=== PATIENT | female | born 1950 | race Caucasian/White ===

== ENCOUNTER → 2017-07-10 09:06 | Outpatient (CLI) | payer OTHER, SELFPAY ==
[2017-07-10 10:39] LABS: Alanine Aminotransferase 31 IU/L (9-52); Albumin 4.4 g/dL (3.5-5.0); Albumin Globulin Ratio 1.6 (1.0-2.8); Alkaline Phosphatase 92 U/L (38-126); Aspartate Aminotransferase 31 IU/L (14-36); Bilirubin Total 0.6 mg/dL (0.2-1.3); Blood Urea Nitrogen 10 mg/dL (7-17); Calcium 8.9 mg/dL (8.4-10.2); Carbon Dioxide 28 mmol/L (22-32); Chloride 102 mmol/L (98-107); Estimated Glomerular Filt Rate > 60.0 mL/min (>60); Globulin 2.8 g/dL (1.7-4.1); Glucose 97 mg/dL (80-110); HEMOLYSIS < 15 (0-50); Potassium 4.8 mmol/L (3.4-5.1); Sodium 140 mmol/L (137-145); Total Protein 7.2 g/dL (6.3-8.2)
[2017-07-10 11:28] LABS: Creatinine Urine Random 48.6 mg/dL
[2017-07-10 11:32] LABS: Microalbumi Creatinin Ratio Ur 14.4 ug/mg CR (<30); Microalbumin Urine Random 0.7 mg/dL (0-1.6)
== END ==
PROVIDERS: PCP Physician Assistant; Visit Provider Physician Assistant
DX: I10 Essential (primary) hypertension (principal)
CPT/HCPCS: 36415; 80053; 82043; 82570

== ENCOUNTER → 2017-08-28 07:47 | Outpatient (CLI) | payer OTHER, SELFPAY ==
--- NOTE | 2017-08-28 07:48 | DI.MG.S_ITS ---
BILATERAL DIGITAL SCREENING MAMMOGRAM 3D/2D WITH CAD: 08/28/2017 CLINICAL: Routine screening. Family history of breast cancer. Comparison is made to exams dated: 05/19/2016 mammogram, 04/28/2015 mammogram, and 04/21/2014 mammogram - [facility]. The tissue of both breasts is heterogeneously dense. This may lower the sensitivity of mammography. Current study was also evaluated with a Computer Aided Detection (CAD) system. There are grouped heterogeneous pleomorphic punctate calcifications in the left breast at 1 o'clock middle depth. These are increased in number of calcifications. No other significant masses, calcifications, or other findings are seen in either breast. IMPRESSION: INCOMPLETE: NEEDS ADDITIONAL IMAGING EVALUATION The grouped heterogeneous pleomorphic punctate calcifications in the left breast are indeterminate. Mediolateral, spot magnification, and additional views are recommended. This exam was interpreted at Station ID: [id number]. NOTE: For mammograms, a report in lay terms will be sent to the patient. Approximately 15% of breast malignancies will not be visualized mammographically. In the management of a palpable breast mass, a negative mammogram must not discourage biopsy of a clinically suspicious lesion. Electronically Signed By: Joel benavidez/hiren:08/28/2017 16:42:54 letter sent: Additional Imaging Needed ACR BI-RADS Category 0: Incomplete 3340F
== END ==
PROVIDERS: PCP Physician Assistant; Visit Provider Physician Assistant
DX: Z12.31 Encounter for screening mammogram for malignant neoplasm of breast (principal); Z80.3 Family history of malignant neoplasm of breast
CPT/HCPCS: 77063; 77067

== ENCOUNTER → 2017-09-05 12:44 | Outpatient (CLI) | payer OTHER, SELFPAY ==
--- NOTE | 2017-09-05 12:46 | DI.MG.S_ITS ---
UNILATERAL LEFT DIGITAL DIAGNOSTIC MAMMOGRAM 3D/2D WITH ADDITIONAL VIEWS: 09/05/2017 CLINICAL: Additional evaluation requested from prior study. Comparison is made to exams dated: 08/28/2017 mammogram, 05/19/2016 mammogram, and 04/28/2015 mammogram - [facility]. The tissue of the left breast is heterogeneously dense. This may lower the sensitivity of mammography. There is a calcification in the left breast at 1 o'clock middle depth. No other significant masses or calcifications are seen in the breast. IMPRESSION: SUSPICIOUS OF MALIGNANCY The calcification in the left breast is suspicious of malignancy. A stereotactic biopsy is recommended. This exam was interpreted at Station ID: [id number]. NOTE: For mammograms, a report in lay terms will be sent to the patient. Approximately 15% of breast malignancies will not be visualized mammographically. In the management of a palpable breast mass, a negative mammogram must not discourage biopsy of a clinically suspicious lesion. Electronically Signed By: Reyes walker/hiren:09/05/2017 16:47:12 letter sent: Biopsy Required ACR BI-RADS Category 4: Suspicious abnormality 3344F
== END ==
PROVIDERS: PCP Physician Assistant; Visit Provider Physician Assistant
DX: R92.1 Mammographic calcification found on diagnostic imaging of breast (principal)
CPT/HCPCS: 77065; G0279

== ENCOUNTER 2017-12-30 19:43 | Emergency (ER) | payer OTHER, SELFPAY ==
[2017-12-30] VITALS (11 sets, daily range): BP systolic 142–183; BP diastolic 65–82; PULSE 70–86; RESP 11–18; TEMP 36.8; O2SAT 98–100; BMI 34.7
--- NOTE | 2017-12-30 20:01 | DI.RAD.S_ITS ---
PROCEDURE: XR WRIST RT MIN 3V INDICATIONS: fall with obvious deformity, distal radius? TECHNIQUE: 4 views of the wrist were acquired. COMPARISON: None. FINDINGS: Bones: Moderately displaced impacted comminuted distal radial fracture with articular surface extension to the radiocarpal joint. Mildly displaced ulnar styloid fracture. Scaphoid view: Negative Soft tissues: No suspicious soft tissue calcifications. IMPRESSION: Distal radial and ulnar fractures. Dictated by: Celio Kingston M.D. on 12/30/2017 at 20:14 Approved by: Celio Kingston M.D. on 12/30/2017 at 20:15
--- NOTE | 2017-12-30 20:01 | DI.CT.S_ITS ---
PROCEDURE: CT HEAD/BRAIN WO CON INDICATIONS: fall, head injury, on antiplatelets TECHNIQUE: Noncontrast 4.5 mm thick angled axial sections acquired from the foramen magnum to the vertex, with coronal and sagittal reformats. For radiation dose reduction, the following was used: automated exposure control, adjustment of mA and/or kV according to patient size. COMPARISON: None. FINDINGS: Image quality: Excellent. CSF spaces: Basal cisterns are patent. No extra-axial fluid collections. The ventricles are symmetric in size and shape. Brain: No intracranial bleeds or masses. There is cerebral volume loss for age, with resultant ventricular and sulcal prominence. There are periventricular and deep white matter chronic small vessel ischemic changes. There is intracranial internal carotid artery atherosclerosis. Skull and face: Calvarium and visualized facial bones appear intact, without suspicious lesions. Sinuses: Visualized sinuses and mastoids are clear. IMPRESSION: No acute intracranial abnormality. Dictated by: Celio Kingston M.D. on 12/30/2017 at 20:26 Approved by: Celio Kingston M.D. on 12/30/2017 at 20:26
--- NOTE | 2017-12-30 20:17 | ED.FALL ---
HPI - Fall General Chief Complaint: Fall Stated Complaint: GLF Time Seen by Provider: 12/30/17 19:50 Source: patient, family and EMS Mode of arrival: EMS History of Present Illness HPI Narrative: 67-year-old nonsmoking female presents with a chief complaint a mechanical fall resulting in a head injury and an obvious deformity to her right wrist. She admittedly was walking in the dark and tripped over an object, causing her to fall forward and strike her head. She denies any loss of consciousness nor nausea or vomiting. She takes no blood thinners and has full recall of the event. She did fall on an outstretched right wrist and has an obvious deformity in the absence of numbness, tingling weakness. She is otherwise well and free of complaint. MD complaint: fall Onset (ago): minute(s) Fall from: standing Fall witnessed: no Place fall occurred: home Loss of consciousness: none Prolonged down time: no Symptoms prior to fall: none Context: tripped/slipped Location of injury: head Location of injury - extremities: Right: forearm Related Data Home Medications Medication Instructions Recorded Confirmed calcium carbonate-vitamin D3 2 tab PO QDAY #0 01/18/12 10/18/17 [Oyster Shell Calcium-Vit D3] [ANTIHISTAMINE OTC] 25 mg PO PRN #0 02/16/12 10/18/17 [VITAMIN D] 2,000 iu PO QDAY #0 06/19/12 10/18/17 [VITAMIN B-12] 1,000 mcg PO QDAY #0 03/07/16 10/18/17 [IRON] 65 mg PO QDAY #0 04/28/16 10/18/17 [POTASSIUM GLUCOMATE] 550 mg PO QDAY #0 04/28/16 10/18/17 [PSYLLIUM] 2 cap PO BID #0 04/28/16 10/18/17 multivitamin [Multiple Vitamins] 1 tab PO QDAY #0 04/28/16 10/18/17 [ACIDOPHILUS PROBIOTI] 1 cap PO BID #0 07/12/17 10/18/17 aspirin 81 mg tablet,delayed 81 mg PO DAILY 07/12/17 10/18/17 release denosumab 60 mg/mL subcutaneous 60 mg SUBCUT [id number] vial 07/12/17 10/18/17 syringe Previous Rx's Medication Instructions Recorded FAMOTIDINE 40 mg PO HS #90 tab 12/12/16 amlodipine [Norvasc] 5 mg PO QDAY #90 tab 12/12/16 cetirizine 10 mg PO QDAY #90 tab 12/12/16 montelukast 10 mg PO HS #90 tab 12/12/16 telmisartan [Micardis] 40 mg PO QDAY #90 tab 12/12/16 triamcinolone acetonide 0.1 % 1 applictn TOP DAILY PRN #80 gram 07/12/17 topical cream varicella-zoster glycoE [id number] 0.5 ml IM ONCE #1 each 07/12/17 adj(PF) 50 mcg/0.5 mL IM susp, kit hydroxyzine pamoate 1 - 2 cap PO Q4HP PRN #60 cap 09/07/17 buspirone 5 mg tablet 5 mg PO BID #60 tab 10/18/17 prednisone 20 mg tablet See Label Instructions PO DAILY 10/18/17 #23 tab hydrocodone-acetaminophen 1 tab PO Q4-6H PRN #30 tab 12/30/17 ondansetron 4 mg PO TID-QID PRN #10 tab 12/30/17 Allergies Allergy/AdvReac Type Severity Reaction Status Date / Time propoxyphene Allergy Severe (DARVON) Verified 12/30/17 19:58 STOPPED BREATHING Beta-Blockers AdvReac Intermediate LIGHTHEADED Verified 12/30/17 19:58 (Beta-Adrenergic Bloc AND FELT LIKE SHE WAS OUTSIDE OF HER BODY enoxaparin [ENOXAPARIN] AdvReac Intermediate IT SITS Verified 12/30/17 19:58 UNDER MY SKIN AND MAKES VERY LARGE BRUISES Review of Systems Review of Systems All systems reviewed & are unremarkable except as noted in HPI and below Constitutional Denies chills, Denies fever(s), Denies lethargy and Denies weakness Eyes Denies change in vision, Denies eye discharge, Denies irritation and Denies loss of vision ENT Ears, Nose, Mouth, and Throat: Denies change in voice, Denies neck pain and Denies sore throat Cardiovascular Denies chest pain, Denies irregular heart rhythm, Denies lightheadedness, Denies palpitations, Denies dyspnea, Denies dyspnea on exertion and Denies orthopnea Respiratory Denies cough, Denies dyspnea, Denies dyspnea on exertion and Denies wheezing Gastrointestinal Gastrointestinal: Denies abdominal pain, Denies change in bowel habits, Denies diarrhea, Denies nausea and Denies vomiting Genitourinary Denies hematuria, Denies flank pain, Denies urinary incontinence and Denies urinary urgency Musculoskeletal Reports joint swelling, Reports limited range of motion and Denies neck pain Integumentary/Breasts Denies pruritus, Denies erythema, Denies rash and Denies wounds Neurologic Denies confusion, Denies loss of vision and Denies weakness Psychiatric Denies anxiety, Denies confusion, Denies depression, Denies homicidal ideation and Denies suicidal ideation Endocrine Denies palpitations Hematologic/Lymphatic Denies easy bruising Allergic/Immunologic Denies wheezing Exam Narrative Exam Narrative: GENERAL: Pleasant 67-year-old female in mild distress. Abrasion on her forehead, GCS 15, clutching her right wrist HEAD: Abrasion to right anterior forehead at the hairline EYES: Pupils equal round and reactive. Extraocular motions intact. No scleral icterus. No injection or drainage. ENT: Nose without bleeding, purulent drainage or septal hematoma. Throat without erythema, tonsillar hypertrophy or exudate. Uvula midline. Airway patent. NECK: Trachea midline. No JVD or lymphadenopathy. Supple, nontender, no meningeal signs. CARDIOVASCULAR: Regular rate and rhythm without murmurs, gallops, or rubs. RESPIRATORY: Clear to auscultation. Breath sounds equal bilaterally. No wheezes, rales, or rhonchi. GASTROINTESTINAL: Abdomen soft, non-tender, nondistended. No hepato-splenomegaly, or palpable masses. No guarding. EXTREMITIES: Obvious deformity to right wrist, closed, isolated and neurovascularly intact suspected distal radius fracture BACK: Nontender without deformity or crepitance. No flank tenderness. NEURO: AOx3. SKIN: No rash or erythema. Initial Vital Signs Initial Vital Signs: Vital Signs Temperature 98.2 F 12/30/17 19:58 Pulse Rate 85 12/30/17 19:58 Respiratory Rate 18 12/30/17 19:58 Blood Pressure 183/81 H 12/30/17 19:58 Pulse Oximetry 100 12/30/17 19:58 [facility] Medical History Essential hypertension (Chronic 04/23/02) Status post bariatric surgery (Chronic) Osteoporosis (Chronic 05/09/16) Crohn's disease without complication (Resolved) Allergic rhinitis (Chronic Unknown) Crohns disease (Chronic Unknown) GERD (gastroesophageal reflux disease) (Chronic Unknown) Hypertension (Chronic Unknown) Irritable bowel syndrome (Chronic Unknown) Osteoporosis (Chronic Unknown) Psoriasis (Chronic Unknown) Colitis (Resolved Unknown) Diabetes (Resolved Unknown) Hyperlipemia (Resolved Unknown) Surgical History Hx of abdominoplasty (Resolved 04/2009) Hx of hernia repair (Resolved Unknown) Hx of tonsillectomy (Resolved Unknown) History of gastric bypass (07/28/08) History of knee replacement (04/02/10) Social History Smoking Status: Former smoker Tobacco: How many years used: 10 second hand exposure: No alcohol intake: current (rowdy once in a while.) substance use type: does not use Procedures Orthopedic Fracture Reduction Fracture #1: Time Out Performed: Yes Side: right Fracture Reduction Location: radius Analgesia: procedural sedation Technique: direct manipulation and traction/counter-traction Post Reduction X-rays Demonstrate: acceptable reduction Post-reduction neuro exam: intact Post-reduction vascular exam: intact Splint Applied: Yes Patient Tolerated Procedure: Well Orthopedic Splinting/Casting Injury #1: Side: right Upper Extremity Injury Location: wrist Upper Extremity Immobilizer: sling/shoulder immobilizer and sugar tong splint Procedural Sedation Patient Age: Patient is 5yrs or older Indication: fracture/dislocation reduction ASA Class: II Mallampati Airway Classification: Class I Preparation: hospital monitor applied, pulse oximeter, capnometry used, supplemental O2 applied, suction/airway equipment at bedside and IV secured IV Propofol dose (mg): 80 ED Sedation Level: Moderate (Concious) Patient Tolerated Procedure: Well Complications: none Course Orders Ordered: ED Orders 12/30/17 21:05 XR wrist RT 2V Stat Discontinued Medications Hydrocodone Bitart/Acetaminophen (Vicodin Prepack) 1 bottle MISC SEEINSTR ONE Stop: 12/30/17 20:25 Last Admin: 12/30/17 21:19 Dose: 1 bottle Ondansetron HCl (Zofran Odt Prepack) 1 bottle MISC SEEINSTR ONE Stop: 12/30/17 20:25 Last Admin: 12/30/17 21:19 Dose: 1 bottle Propofol (Diprivan) 80 mg IV NOW ONE Stop: 12/30/17 21:53 Last Admin: 12/30/17 20:48 Dose: 80 mg Consultations Consultation #1: Dr. Yoder consulted and happy to see patient early in the week as an outpatient Vital Signs - 8 hr 12/30/17 19:58 Temperature 98.2 F Pulse Rate 85 Respiratory Rate 18 Blood Pressure 183/81 H Pulse Oximetry 100 MDM - Fall Medical Records Attestation: I reviewed the patient's medical records. Lab Data Attestation: I reviewed the patient's lab results. Result diagrams: 12/30/17 20:30 12/30/17 20:30 Lab Results 12/30/17 12/30/17 Range/Units 20:30 20:30 WBC 10.5 (4.5-11.0) X10^3/uL RBC 4.12 (4.0-5.2) X10^6/uL Hgb 12.4 (12.0-16.0) g/dL Hct 37.3 (36-46) % MCV 90.5 (80-100) fL MCH 30.1 (26-34) PG MCHC 33.3 (30-36) % RDW 13.8 (11.6-14.8) % Plt Count 312 (150-400) X10^3/uL Neut % (Auto) 69.3 (50-75) % Lymph % (Auto) 19.1 L (25-40) % [place] % (Auto) 8.1 (3-14) % Eos % (Auto) 2.3 (2-4) % Baso % (Auto) 1.2 (0-2) % Neut # (Auto) 7300 H (2111-5545) /uL Sodium 142 (137-145) mmol/L Potassium 3.9 (3.4-5.1) mmol/L Chloride 105 (98-107) mmol/L Carbon Dioxide 23 (22-32) mmol/L BUN 11 (7-17) mg/dL Creatinine 0.60 (0.52-1.04) mg/dL Estimated GFR > 60.0 (>60) mL/min BUN/Creatinine Ratio 18.3 (6-22) Glucose 140 H (80-110) mg/dL Calcium 9.3 (8.4-10.2) mg/dL Point of Care Testing Test Results Not applicable Imaging Data Xray R Wrist: Attestation: I personally reviewed and interpreted this imaging study as follows: My impression: displaced, intra-articular distal radius/ulna fracture repeat notes some improvement of alignment Discharge Plan Departure Patient Disposition: Home Clinical Impression: Closed fracture distal radius and ulna, Contusion of forehead Discharge Date/Time: 12/30/17 22:01 Interventions: ED Discharge Assessment Last Done: 12/30/17 22:00 Instructions: DI for Concussion, DI for Wrist Fracture, DI for Contusion Activity Restrictions/Additional Instructions: *You have been diagnosed with [ Right distal radius fracture, forehead contusion ] *What to do: *Take medications as directed *Follow up with Dr. Yoder of [facility], call for an appointment. Let them know you were seen in the Emergency Department and that we ask that you be seen in follow up. You will almost surely need surgery. *DO NOT eat or drink after midnight on Monday night as there is a small chance of surgery as soon as Monday. *Return to ER if you should have any new, worsening or concerning symptoms, such as [worsening pain, numbness, tingling, weakness of your fingers. ] Prescriptions: New hydrocodone-acetaminophen 5-325 mg tablet 1 tab PO Q4-6H PRN (Reason: pain) Qty: 30 RF: 0 ondansetron 4 mg tablet,disintegrating 4 mg PO TID-QID PRN (Reason: nausea and vomiting) Qty: 10 RF: 0 No Action aspirin [Adult Aspirin Regimen] 81 mg tablet,delayed release (DR/EC) 81 mg PO DAILY RF: 0 denosumab [Prolia] 60 mg/mL syringe 60 mg SUBCUT [id number] RF: 0 varicella-zoster [id number] (PF) [Shingrix (PF)] 50 mcg/0.5 mL suspension for reconstitution 0.5 ml IM ONCE Qty: 1 RF: 1 triamcinolone acetonide 0.1 % cream 1 applictn TOP DAILY PRN (Reason: pruritis) Qty: 80 RF: 3 buspirone 5 mg tablet 5 mg PO BID Qty: 60 RF: 3 prednisone 20 mg tablet See Label Instructions PO DAILY Qty: 23 RF: 0 calcium carbonate-vitamin D3 [Oyster Shell Calcium-Vit D3] 1,250 MG/200 IU tablet 2 tab PO QDAY Qty: 0 RF: 0 [ANTIHISTAMINE OTC] 25 mg PO PRN Qty: 0 RF: 0 [VITAMIN D] 2,000 iu PO QDAY Qty: 0 RF: 0 [VITAMIN B-12] 1,000 mcg PO QDAY Qty: 0 RF: 0 [PSYLLIUM] 2 cap PO BID Qty: 0 RF: 0 [POTASSIUM GLUCOMATE] 550 mg PO QDAY Qty: 0 RF: 0 [IRON] 65 mg PO QDAY Qty: 0 RF: 0 multivitamin [Multiple Vitamins] 1 EACH tablet 1 tab PO QDAY Qty: 0 RF: 0 cetirizine 10 MG tablet 10 mg PO QDAY Qty: 90 RF: 3 amlodipine [Norvasc] 5 MG tablet 5 mg PO QDAY Qty: 90 RF: 3 telmisartan [Micardis] 40 MG tablet 40 mg PO QDAY Qty: 90 RF: 3 montelukast 10 MG tablet 10 mg PO HS Qty: 90 RF: 3 FAMOTIDINE 40 mg PO HS Qty: 90 RF: 3 [ACIDOPHILUS PROBIOTI] 1 cap PO BID Qty: 0 RF: 0 hydroxyzine pamoate 25 mg capsule 1 - 2 cap PO Q4HP PRNQty: 60 RF: 1 Referrals: Helen Walker PA-C [Primary Care Provider] - Dany Yoder MD [Physician] -
[2017-12-30 20:41] LABS: Add Manual Diff / Slide Review NO; Basophils Percent Auto 1.2 % (0-2); Eosinophils Percent Auto 2.3 % (2-4); Hematocrit 37.3 % (36-46); Hemoglobin 12.4 g/dL (12.0-16.0); Lymphocytes Percent Auto 19.1 % (25-40); Mean Corpuscular HGB Conc 33.3 % (30-36); Mean Corpuscular Hemoglobin 30.1 PG (26-34); Mean Corpuscular Volume 90.5 fL (80-100); Monocytes Percent Auto 8.1 % (3-14); Neutrophils Absolute Auto 7300 /uL (3000-5900); Neutrophils Percent Auto 69.3 % (50-75); Platelet Count 312 X10^3/uL (150-400); Red Blood Cell Count 4.12 X10^6/uL (4.0-5.2); Red Cell Distribution Width 13.8 % (11.6-14.8); White Blood Cell Count 10.5 X10^3/uL (4.5-11.0)
[2017-12-30] MEDS: PROPOFOL 200 MG/20 ML VIAL 80 MG IV (20:48)
[2017-12-30 20:50] LABS: BUN Creatinine Ratio 18.3 (6-22); Blood Urea Nitrogen 11 mg/dL (7-17); Calcium 9.3 mg/dL (8.4-10.2); Carbon Dioxide 23 mmol/L (22-32); Chloride 105 mmol/L (98-107); Estimated Glomerular Filt Rate > 60.0 mL/min (>60); Glucose 140 mg/dL (80-110); HEMOLYSIS < 15 (0-50); Potassium 3.9 mmol/L (3.4-5.1); Sodium 142 mmol/L (137-145)
--- NOTE | 2017-12-30 21:05 | DI.RAD.S_ITS ---
PROCEDURE: XR WRIST RT 2V INDICATIONS: post reduction TECHNIQUE: 2 views of the wrist were acquired. COMPARISON: None. FINDINGS: A splint is present, obscuring fine bony detail. Bones: There is improved alignment of the distal radial and ulnar fractures. No suspicious bony lesions. Scaphoid view: Not requested Soft tissues: No suspicious soft tissue calcifications. IMPRESSION: Improved alignment of distal radial and ulnar fractures. Dictated by: Celio Kingston M.D. on 12/30/2017 at 21:31 Approved by: Celio Kingston M.D. on 12/30/2017 at 21:31
[2017-12-30] MEDS: ONDANSETRON 4 MG ODT PREPACK 1 BOTTLE MISC (21:19)
[2017-12-30] MEDS: HYDROCODONE/ACET 5/325 PREPACK 1 BOTTLE MISC (21:19)
--- NOTE | 2017-12-31 06:02 | ED_ITS ---
HPI - Fall General Chief Complaint: Fall Stated Complaint: GLF Time Seen by Provider: 12/30/17 19:50 Source: patient, family and EMS Mode of arrival: EMS History of Present Illness HPI Narrative: 67-year-old nonsmoking female presents with a chief complaint a mechanical fall resulting in a head injury and an obvious deformity to her right wrist. She admittedly was walking in the dark and tripped over an object , causing her to fall forward and strike her head. She denies any loss of consciousness nor nausea or vomiting. She takes no blood thinners and has full recall of the event. She did fall on an outstretched right wrist and has an obvious deformity in the absence of numbness, tingling weakness. She is otherwise well and free of complaint. MD complaint: fall Onset (ago): minute(s) Fall from: standing Fall witnessed: no Place fall occurred: home Loss of consciousness: none Prolonged down time: no Symptoms prior to fall: none Context: tripped/slipped Location of injury: head Location of injury - extremities: Right: forearm Related Data Home Medications Medication Instructions Recorded Confirmed calcium carbonate-vitamin D3 2 tab PO QDAY #0 01/18/12 10/18/17 [Oyster Shell Calcium-Vit D3] [ANTIHISTAMINE OTC] 25 mg PO PRN #0 02/16/12 10/18/17 [VITAMIN D] 2,000 iu PO QDAY #0 06/19/12 10/18/17 [VITAMIN B-12] 1,000 mcg PO QDAY #0 03/07/16 10/18/17 [IRON] 65 mg PO QDAY #0 04/28/16 10/18/17 [POTASSIUM GLUCOMATE] 550 mg PO QDAY #0 04/28/16 10/18/17 [PSYLLIUM] 2 cap PO BID #0 04/28/16 10/18/17 multivitamin [Multiple Vitamins] 1 tab PO QDAY #0 04/28/16 10/18/17 [ACIDOPHILUS PROBIOTI] 1 cap PO BID #0 07/12/17 10/18/17 aspirin 81 mg tablet,delayed 81 mg PO DAILY 07/12/17 10/18/17 release denosumab 60 mg/mL subcutaneous 60 mg SUBCUT [id number] vial 07/12/17 10/18/17 syringe Previous Rx's Medication Instructions Recorded FAMOTIDINE 40 mg PO HS #90 tab 12/12/16 amlodipine [Norvasc] 5 mg PO QDAY #90 tab 12/12/16 cetirizine 10 mg PO QDAY #90 tab 12/12/16 montelukast 10 mg PO HS #90 tab 12/12/16 telmisartan [Micardis] 40 mg PO QDAY #90 tab 12/12/16 triamcinolone acetonide 0.1 % 1 applictn TOP DAILY PRN #80 gram 07/12/17 topical cream varicella-zoster glycoE [id number] 0.5 ml IM ONCE #1 each 07/12/17 adj(PF) 50 mcg/0.5 mL IM susp, kit hydroxyzine pamoate 1 - 2 cap PO Q4HP PRN #60 cap 09/07/17 buspirone 5 mg tablet 5 mg PO BID #60 tab 10/18/17 prednisone 20 mg tablet See Label Instructions PO DAILY 10/18/17 #23 tab hydrocodone-acetaminophen 1 tab PO Q4-6H PRN #30 tab 12/30/17 ondansetron 4 mg PO TID-QID PRN #10 tab 12/30/17 Allergies Allergy/AdvReac Type Severity Reaction Status Date / Time propoxyphene Allergy Severe (DARVON) Verified 12/30/17 19:58 STOPPED BREATHING Beta-Blockers AdvReac Intermediate LIGHTHEADED Verified 12/30/17 19:58 (Beta-Adrenergic Bloc AND FELT LIKE SHE WAS OUTSIDE OF HER BODY enoxaparin [ENOXAPARIN] AdvReac Intermediate IT SITS Verified 12/30/17 19:58 UNDER MY SKIN AND MAKES VERY LARGE BRUISES Review of Systems Review of Systems All systems reviewed & are unremarkable except as noted in HPI and below Constitutional Denies chills, Denies fever(s), Denies lethargy and Denies weakness Eyes Denies change in vision, Denies eye discharge, Denies irritation and Denies loss of vision ENT Ears, Nose, Mouth, and Throat: Denies change in voice, Denies neck pain and Denies sore throat Cardiovascular Denies chest pain, Denies irregular heart rhythm, Denies lightheadedness, Denies palpitations, Denies dyspnea, Denies dyspnea on exertion and Denies orthopnea Respiratory Denies cough, Denies dyspnea, Denies dyspnea on exertion and Denies wheezing Gastrointestinal Gastrointestinal: Denies abdominal pain, Denies change in bowel habits, Denies diarrhea, Denies nausea and Denies vomiting Genitourinary Denies hematuria, Denies flank pain, Denies urinary incontinence and Denies urinary urgency Musculoskeletal Reports joint swelling, Reports limited range of motion and Denies neck pain Integumentary/Breasts Denies pruritus, Denies erythema, Denies rash and Denies wounds Neurologic Denies confusion, Denies loss of vision and Denies weakness Psychiatric Denies anxiety, Denies confusion, Denies depression, Denies homicidal ideation and Denies suicidal ideation Endocrine Denies palpitations Hematologic/Lymphatic Denies easy bruising Allergic/Immunologic Denies wheezing Exam Narrative Exam Narrative: GENERAL: Pleasant 67-year-old female in mild distress. Abrasion on her forehead, GCS 15, clutching her right wrist HEAD: Abrasion to right anterior forehead at the hairline EYES: Pupils equal round and reactive. Extraocular motions intact. No scleral icterus. No injection or drainage. ENT: Nose without bleeding, purulent drainage or septal hematoma. Throat without erythema, tonsillar hypertrophy or exudate. Uvula midline. Airway patent. NECK: Trachea midline. No JVD or lymphadenopathy. Supple, nontender, no meningeal signs. CARDIOVASCULAR: Regular rate and rhythm without murmurs, gallops, or rubs. RESPIRATORY: Clear to auscultation. Breath sounds equal bilaterally. No wheezes , rales, or rhonchi. GASTROINTESTINAL: Abdomen soft, non-tender, nondistended. No hepato-splenomegaly , or palpable masses. No guarding. EXTREMITIES: Obvious deformity to right wrist, closed, isolated and neurovascularly intact suspected distal radius fracture BACK: Nontender without deformity or crepitance. No flank tenderness. NEURO: AOx3. SKIN: No rash or erythema. Initial Vital Signs Initial Vital Signs: Vital Signs Temperature 98.2 F 12/30/17 19:58 Pulse Rate 85 12/30/17 19:58 Respiratory Rate 18 12/30/17 19:58 Blood Pressure 183/81 H 12/30/17 19:58 Pulse Oximetry 100 12/30/17 19:58 COUNT INCLUDES THE [facility] Medical History Essential hypertension (Chronic 04/23/02) Status post bariatric surgery (Chronic) Osteoporosis (Chronic 05/09/16) Crohn's disease without complication (Resolved) Allergic rhinitis (Chronic Unknown) Crohns disease (Chronic Unknown) GERD (gastroesophageal reflux disease) (Chronic Unknown) Hypertension (Chronic Unknown) Irritable bowel syndrome (Chronic Unknown) Osteoporosis (Chronic Unknown) Psoriasis (Chronic Unknown) Colitis (Resolved Unknown) Diabetes (Resolved Unknown) Hyperlipemia (Resolved Unknown) Surgical History Hx of abdominoplasty (Resolved 04/2009) Hx of hernia repair (Resolved Unknown) Hx of tonsillectomy (Resolved Unknown) History of gastric bypass (07/28/08) History of knee replacement (04/02/10) Social History Smoking Status: Former smoker Tobacco: How many years used: 10 second hand exposure: No alcohol intake: current (rowdy once in a while.) substance use type: does not use Procedures Orthopedic Fracture Reduction Fracture #1: Time Out Performed: Yes Side: right Fracture Reduction Location: radius Analgesia: procedural sedation Technique: direct manipulation and traction/counter-traction Post Reduction X-rays Demonstrate: acceptable reduction Post-reduction neuro exam: intact Post-reduction vascular exam: intact Splint Applied: Yes Patient Tolerated Procedure: Well Orthopedic Splinting/Casting Injury #1: Side: right Upper Extremity Injury Location: wrist Upper Extremity Immobilizer: sling/shoulder immobilizer and sugar tong splint Procedural Sedation Patient Age: Patient is 5yrs or older Indication: fracture/dislocation reduction ASA Class: II Mallampati Airway Classification: Class I Preparation: manager cardiac applied, pulse oximeter, capnometry used, supplemental O2 applied, suction/airway equipment at bedside and IV secured IV Propofol dose (mg): 80 ED Sedation Level: Moderate (Concious) Patient Tolerated Procedure: Well Complications: none Course Orders Ordered: ED Orders 12/30/17 21:05 XR wrist RT 2V Stat Discontinued Medications Hydrocodone Bitart/Acetaminophen (Vicodin Prepack) 1 bottle MISC SEEINSTR ONE Stop: 12/30/17 20:25 Last Admin: 12/30/17 21:19 Dose: 1 bottle Ondansetron HCl (Zofran Odt Prepack) 1 bottle MISC SEEINSTR ONE Stop: 12/30/17 20:25 Last Admin: 12/30/17 21:19 Dose: 1 bottle Propofol (Diprivan) 80 mg IV NOW ONE Stop: 12/30/17 21:53 Last Admin: 12/30/17 20:48 Dose: 80 mg Consultations Consultation #1: Dr. Yoder consulted and happy to see patient early in the week as an outpatient Vital Signs - 8 hr 12/30/17 19:58 Temperature 98.2 F Pulse Rate 85 Respiratory Rate 18 Blood Pressure 183/81 H Pulse Oximetry 100 MDM - Fall Medical Records Attestation: I reviewed the patient's medical records. Lab Data Attestation: I reviewed the patient's lab results. Result diagrams: 12/30/17 20:30 12/30/17 20:30 Lab Results 12/30/17 12/30/17 Range/Units 20:30 20:30 WBC 10.5 (4.5-11.0) X10^3/uL RBC 4.12 (4.0-5.2) X10^6/uL Hgb 12.4 (12.0-16.0) g/dL Hct 37.3 (36-46) % MCV 90.5 (80-100) fL MCH 30.1 (26-34) PG MCHC 33.3 (30-36) % RDW 13.8 (11.6-14.8) % Plt Count 312 (150-400) X10^3/uL Neut % (Auto) 69.3 (50-75) % Lymph % (Auto) 19.1 L (25-40) % [place] % (Auto) 8.1 (3-14) % Eos % (Auto) 2.3 (2-4) % Baso % (Auto) 1.2 (0-2) % Neut # (Auto) 7300 H (5744-2700) /uL Sodium 142 (137-145) mmol/L Potassium 3.9 (3.4-5.1) mmol/L Chloride 105 (98-107) mmol/L Carbon Dioxide 23 (22-32) mmol/L BUN 11 (7-17) mg/dL Creatinine 0.60 (0.52-1.04) mg/dL Estimated GFR > 60.0 (>60) mL/min BUN/Creatinine Ratio 18.3 (6-22) Glucose 140 H (80-110) mg/dL Calcium 9.3 (8.4-10.2) mg/dL Point of Care Testing Test Results Not applicable Imaging Data Xray R Wrist: Attestation: I personally reviewed and interpreted this imaging study as follows: My impression: displaced, intra-articular distal radius/ulna fracture repeat notes some improvement of alignment Discharge Plan Departure Patient Disposition: Home Clinical Impression: Closed fracture distal radius and ulna, Contusion of forehead Discharge Date/Time: 12/30/17 22:01 Interventions: ED Discharge Assessment Last Done: 12/30/17 22:00 Instructions: DI for Concussion, DI for Wrist Fracture, DI for Contusion Activity Restrictions/Additional Instructions: *You have been diagnosed with [ Right distal radius fracture, forehead contusion ] *What to do: *Take medications as directed *Follow up with Dr. Yoder of [facility], call for an appointment. Let them know you were seen in the Emergency Department and that we ask that you be seen in follow up. You will almost surely need surgery. *DO NOT eat or drink after midnight on Monday night as there is a small chance of surgery as soon as Monday. *Return to ER if you should have any new, worsening or concerning symptoms , such as [worsening pain, numbness, tingling, weakness of your fingers. ] Prescriptions: New hydrocodone-acetaminophen 5-325 mg tablet 1 tab PO Q4-6H PRN (Reason: pain) Qty: 30 RF: 0 ondansetron 4 mg tablet,disintegrating 4 mg PO TID-QID PRN (Reason: nausea and vomiting) Qty: 10 RF: 0 No Action aspirin [Adult Aspirin Regimen] 81 mg tablet,delayed release (DR/EC) 81 mg PO DAILY RF: 0 denosumab [Prolia] 60 mg/mL syringe 60 mg SUBCUT [id number] RF: 0 varicella-zoster [id number] (PF) [Shingrix (PF)] 50 mcg/0.5 mL suspension for reconstitution 0.5 ml IM ONCE Qty: 1 RF: 1 triamcinolone acetonide 0.1 % cream 1 applictn TOP DAILY PRN (Reason: pruritis) Qty: 80 RF: 3 buspirone 5 mg tablet 5 mg PO BID Qty: 60 RF: 3 prednisone 20 mg tablet See Label Instructions PO DAILY Qty: 23 RF: 0 calcium carbonate-vitamin D3 [Oyster Shell Calcium-Vit D3] 1,250 MG/200 IU tablet 2 tab PO QDAY Qty: 0 RF: 0 [ANTIHISTAMINE OTC] 25 mg PO PRN Qty: 0 RF: 0 [VITAMIN D] 2,000 iu PO QDAY Qty: 0 RF: 0 [VITAMIN B-12] 1,000 mcg PO QDAY Qty: 0 RF: 0 [PSYLLIUM] 2 cap PO BID Qty: 0 RF: 0 [POTASSIUM GLUCOMATE] 550 mg PO QDAY Qty: 0 RF: 0 [IRON] 65 mg PO QDAY Qty: 0 RF: 0 multivitamin [Multiple Vitamins] 1 EACH tablet 1 tab PO QDAY Qty: 0 RF: 0 cetirizine 10 MG tablet 10 mg PO QDAY Qty: 90 RF: 3 amlodipine [Norvasc] 5 MG tablet 5 mg PO QDAY Qty: 90 RF: 3 telmisartan [Micardis] 40 MG tablet 40 mg PO QDAY Qty: 90 RF: 3 montelukast 10 MG tablet 10 mg PO HS Qty: 90 RF: 3 FAMOTIDINE 40 mg PO HS Qty: 90 RF: 3 [ACIDOPHILUS PROBIOTI] 1 cap PO BID Qty: 0 RF: 0 hydroxyzine pamoate 25 mg capsule 1 - 2 cap PO Q4HP PRNQty: 60 RF: 1 Referrals: Helen Walker PA-C [Primary Care Provider] - Dany Yoder MD [Physician] -
== END 2017-12-30 22:01 | disposition home or self-care (01) ==
PROVIDERS: Emergency Provider Emergency Medicine; PCP Physician Assistant
DX: S52.501A Unspecified fracture of the lower end of right radius, initial encounter for closed fracture (principal); S52.601A Unspecified fracture of lower end of right ulna, initial encounter for closed fracture; S00.83XA Contusion of other part of head, initial encounter; W01.0XXA Fall on same level from slipping, tripping and stumbling without subsequent striking against object, initial encounter
CPT/HCPCS: 25505; 29105; 29240; 36591; 70450; 73100; 73110; 80048; 85025; 94770; 96374; 99152; 99283; 99285; 99291; J2704

== ENCOUNTER 2017-12-31 10:18 | Emergency (ER) | payer OTHER, SELFPAY ==
[2017-12-31 10:25] VITALS: BP 154/77; PULSE 88; RESP 20; TEMP 36.8; O2SAT 100; BMI 34.7
--- NOTE | 2017-12-31 10:31 | ED_ITS ---
HPI - Extremity Injury (Upper) General Chief Complaint: Extremity Injury, Upper Stated Complaint: RT ARM BROKEN, IN PAIN Time Seen by Provider: 12/31/17 10:31 Source: patient Mode of arrival: ambulatory Limitations: no limitations History of Present Illness HPI narrative: Patient [age]-year-old female who is seen here in the emergency department last evening for a distal radius fracture after mechanical fall. She was sedated and had a reduction with sugar-tong splint placed. Was sent home with a prepack of hydrocodone/acetaminophen. She states that overnight this pain medication has not been helping and she has increasing pain in her thumb index and middle fingers. She call the emergency department last evening was instructed to loosen the splint which she stated that she did however the symptoms do not improve. She came the emergency department for further evaluation. Related Data Home Medications Medication Instructions Recorded Confirmed calcium carbonate-vitamin D3 2 tab PO QDAY #0 01/18/12 10/18/17 [Oyster Shell Calcium-Vit D3] [ANTIHISTAMINE OTC] 25 mg PO PRN #0 02/16/12 10/18/17 [VITAMIN D] 2,000 iu PO QDAY #0 06/19/12 10/18/17 [VITAMIN B-12] 1,000 mcg PO QDAY #0 03/07/16 10/18/17 [IRON] 65 mg PO QDAY #0 04/28/16 10/18/17 [POTASSIUM GLUCOMATE] 550 mg PO QDAY #0 04/28/16 10/18/17 [PSYLLIUM] 2 cap PO BID #0 04/28/16 10/18/17 multivitamin [Multiple Vitamins] 1 tab PO QDAY #0 04/28/16 10/18/17 [ACIDOPHILUS PROBIOTI] 1 cap PO BID #0 07/12/17 10/18/17 aspirin 81 mg tablet,delayed 81 mg PO DAILY 07/12/17 10/18/17 release denosumab 60 mg/mL subcutaneous 60 mg SUBCUT [id number] vial 07/12/17 10/18/17 syringe Previous Rx's Medication Instructions Recorded FAMOTIDINE 40 mg PO HS #90 tab 12/12/16 amlodipine [Norvasc] 5 mg PO QDAY #90 tab 12/12/16 cetirizine 10 mg PO QDAY #90 tab 12/12/16 montelukast 10 mg PO HS #90 tab 12/12/16 telmisartan [Micardis] 40 mg PO QDAY #90 tab 12/12/16 triamcinolone acetonide 0.1 % 1 applictn TOP DAILY PRN #80 gram 07/12/17 topical cream varicella-zoster glycoE [id number] 0.5 ml IM ONCE #1 each 07/12/17 adj(PF) 50 mcg/0.5 mL IM yue snea hydroxyzine pamoate 1 - 2 cap PO Q4HP PRN #60 cap 09/07/17 buspirone 5 mg tablet 5 mg PO BID #60 tab 10/18/17 prednisone 20 mg tablet See Label Instructions PO DAILY 10/18/17 #23 tab hydrocodone-acetaminophen 1 tab PO Q4-6H PRN #30 tab 12/30/17 ondansetron 4 mg PO TID-QID PRN #10 tab 12/30/17 oxycodone-acetaminophen [Percocet] 1 tab PO Q4-6H PRN #14 tab 12/31/17 Allergies Allergy/AdvReac Type Severity Reaction Status Date / Time propoxyphene Allergy Severe (DARVON) Verified 12/30/17 19:58 STOPPED BREATHING Beta-Blockers AdvReac Intermediate LIGHTHEADED Verified 12/30/17 19:58 (Beta-Adrenergic Bloc AND FELT LIKE SHE WAS OUTSIDE OF HER BODY enoxaparin [ENOXAPARIN] AdvReac Intermediate IT SITS Verified 12/30/17 19:58 UNDER MY SKIN AND MAKES VERY LARGE BRUISES Review of Systems Constitutional Denies fever(s) Musculoskeletal Comments: Right wrist pain Integumentary/Breasts Comments: Abrasion on the forehead did bleed a little last evening Neurologic Comments: Numbness and tingling in the thumb middle and index finger of the right hand Hematologic/Lymphatic Comments: Patient is on aspirin [facility] Social History Smoking Status: Former smoker Tobacco: How many years used: 10 second hand exposure: No alcohol intake: current (rowdy once in a while.) substance use type: does not use Exam Initial Vital Signs Initial Vital Signs: Vital Signs Temperature 98.3 F 12/31/17 10:25 Pulse Rate 88 12/31/17 10:25 Respiratory Rate 20 12/31/17 10:25 Blood Pressure 154/77 H 12/31/17 10:25 Pulse Oximetry 100 12/31/17 10:25 Const General: cooperative, well developed, well groomed and No acute distress Orientation: alert, awake and oriented x3 HENMT Head: other (Dried blood on the right frontal region. No active bleeding.) Cardio Other: Capillary refill less than 2 sec right upper extremity Skin Other: Abrasion right forehead Neuro Other: Decreased sensation to the right thumb middle and index finger to light touch however she states she can feel these. She states that is not worse than her presentation last evening. Extrem Other: Right upper extremity in sugar-tong splint. Course Orders Ordered: Discontinued Medications Hydromorphone HCl (Dilaudid) 1 mg IM NOW ONE Stop: 12/31/17 10:33 Last Admin: 12/31/17 10:37 Dose: 1 mg Vital Signs - 8 hr 12/31/17 10:25 Temperature 98.3 F Pulse Rate 88 Pulse Rate [Left Radial] 88 Respiratory Rate 20 Blood Pressure 154/77 H Pulse Oximetry 100 MDM - Extremity Injury (Upper) MDM Narrative Medical decision making narrative: Patient was given a intramuscular injection of Dilaudid here in the emergency department and the splint was loosened. She states that the tingling in her fingers did improve somewhat however they were still tingling. I discussed the case with Dr. Yoder again today to see if the tingling was the reason that they needed to evaluate the patient earlier than the beginning of next week. He seemed to think that loosening the splint would be sufficient for now. Will change the patient's pain medications to oxycodone. She does have the follow-up instructions for Orthopedics. She again was given return precautions. She expressed understanding and agreement with plan. Discharge Plan Departure Patient Disposition: Home Clinical Impression: Fracture of wrist Instructions: DI for Wrist Fracture Activity Restrictions/Additional Instructions: Recommend you keep your wrist elevated as much as possible. Be sure to call the orthopedic group tomorrow as your directed last evening for a follow-up. Return to the emergency department for any new or worsening symptoms Prescriptions: New oxycodone-acetaminophen [Percocet] 5-325 mg tablet 1 tab PO Q4-6H PRN (Reason: pain) Qty: 14 RF: 0 No Action aspirin [Adult Aspirin Regimen] 81 mg tablet,delayed release (DR/EC) 81 mg PO DAILY RF: 0 denosumab [Prolia] 60 mg/mL syringe 60 mg SUBCUT [id number] RF: 0 varicella-zoster [id number] (PF) [Shingrix (PF)] 50 mcg/0.5 mL suspension for reconstitution 0.5 ml IM ONCE Qty: 1 RF: 1 triamcinolone acetonide 0.1 % cream 1 applictn TOP DAILY PRN (Reason: pruritis) Qty: 80 RF: 3 buspirone 5 mg tablet 5 mg PO BID Qty: 60 RF: 3 prednisone 20 mg tablet See Label Instructions PO DAILY Qty: 23 RF: 0 calcium carbonate-vitamin D3 [Oyster Shell Calcium-Vit D3] 1,250 MG/200 IU tablet 2 tab PO QDAY Qty: 0 RF: 0 [ANTIHISTAMINE OTC] 25 mg PO PRN Qty: 0 RF: 0 [VITAMIN D] 2,000 iu PO QDAY Qty: 0 RF: 0 [VITAMIN B-12] 1,000 mcg PO QDAY Qty: 0 RF: 0 [PSYLLIUM] 2 cap PO BID Qty: 0 RF: 0 [POTASSIUM GLUCOMATE] 550 mg PO QDAY Qty: 0 RF: 0 [IRON] 65 mg PO QDAY Qty: 0 RF: 0 multivitamin [Multiple Vitamins] 1 EACH tablet 1 tab PO QDAY Qty: 0 RF: 0 cetirizine 10 MG tablet 10 mg PO QDAY Qty: 90 RF: 3 amlodipine [Norvasc] 5 MG tablet 5 mg PO QDAY Qty: 90 RF: 3 telmisartan [Micardis] 40 MG tablet 40 mg PO QDAY Qty: 90 RF: 3 montelukast 10 MG tablet 10 mg PO HS Qty: 90 RF: 3 FAMOTIDINE 40 mg PO HS Qty: 90 RF: 3 [ACIDOPHILUS PROBIOTI] 1 cap PO BID Qty: 0 RF: 0 hydroxyzine pamoate 25 mg capsule 1 - 2 cap PO Q4HP PRNQty: 60 RF: 1 hydrocodone-acetaminophen 5-325 mg tablet 1 tab PO Q4-6H PRN (Reason: pain) Qty: 30 RF: 0 ondansetron 4 mg tablet,disintegrating 4 mg PO TID-QID PRN (Reason: nausea and vomiting) Qty: 10 RF: 0
--- NOTE | 2017-12-31 10:32 | PC.NURSE ---
at bedside on arrival. Removed shubham wraps from splint
[2017-12-31] MEDS: HYDROMORPHONE 2 MG INJ 1 MG IM (10:37)
[2017-12-31 11:10] VITALS: BP 110/82; PULSE 78; RESP 20; O2SAT 100
== END 2017-12-31 11:15 | disposition home or self-care (01) ==
PROVIDERS: Emergency Provider Emergency Medicine; PCP Physician Assistant
DX: S62.101A Fracture of unspecified carpal bone, right wrist, initial encounter for closed fracture (principal); W18.30XA Fall on same level, unspecified, initial encounter
CPT/HCPCS: 96372; 99282; 99283; J1170

== ENCOUNTER 2018-01-01 12:46 | Day surgery (SDC) | payer OTHER, SELFPAY ==
[2018-01-01] VITALS (11 sets, daily range): BP systolic 113–187; BP diastolic 59–90; PULSE 76–84; RESP 12–20; TEMP 36.3–37.1; O2SAT 88–98; BMI 36.7; BMI 35.3
--- NOTE | 2018-01-01 | DI.RAD.S_ITS ---
PROCEDURE: XR WRIST RT 2V INDICATIONS: RIGHT WRIST ORIF TECHNIQUE: 2 views of the wrist were acquired. COMPARISON: [facility], , XR WRIST RT 2V, 12/30/2017, 21:08. FINDINGS: Bones: No previously undiagnosed fractures or dislocations. No suspicious bony lesions. The postoperative appearance after ORIF shows normal alignment established. Scaphoid view: Not obtained but the scaphoid previously visualized has been free of trauma. Soft tissues: No suspicious soft tissue calcifications. IMPRESSION: Virtual anatomic alignment established after ORIF of a complex comminuted distal radius intra-articular fracture. Dictated by: Alli Ibarra M.D. on 01/01/2018 at 18:00 Approved by: Alli Ibarra M.D. on 01/01/2018 at 18:02
[2018-01-01 13:25] LABS: Add Manual Diff / Slide Review NO; Basophils Percent Auto 0.9 % (0-2); Eosinophils Percent Auto 1.6 % (2-4); Hematocrit 35.7 % (36-46); Hemoglobin 12.7 g/dL (12.0-16.0); Lymphocytes Percent Auto 18.6 % (25-40); Mean Corpuscular HGB Conc 35.5 % (30-36); Mean Corpuscular Volume 90.3 fL (80-100); Monocytes Percent Auto 9.2 % (3-14); Neutrophils Absolute Auto 6200 /uL (3000-5900); Neutrophils Percent Auto 69.7 % (50-75); Platelet Count 302 X10^3/uL (150-400); Red Blood Cell Count 3.95 X10^6/uL (4.0-5.2); Red Cell Distribution Width 13.6 % (11.6-14.8); White Blood Cell Count 8.9 X10^3/uL (4.5-11.0)
[2018-01-01] MEDS: LACTATED RINGERS 1,000 ML 42 ML IV (15:00)
--- NOTE | 2018-01-01 16:04 | PM.HP.1 ---
History of Present Illness Date Patient Seen: 01/01/18 Time Patient Seen: 16:04 Chief complaint: [id number] Narrative: 67-year-old female. Right-hand dominant. She tripped and fell at home a on outstretched right arm 2 days ago. No other injury. Did not hit her head or lose consciousness. She sustained a distal radius fracture and was seen in the emergency room and splinted. She return to the ER yesterday she was having numbness into the thumb and index and ring finger. Splint was loosened at that time but she is still having numbness in these fingers. Patient History Medical History Essential hypertension (Chronic 04/23/02) Status post bariatric surgery (Chronic) Osteoporosis (Chronic 05/09/16) Crohn's disease without complication (Resolved) Abrasion of forehead (Acute) Anxiety (Acute) Blister (Acute) Depression (Acute) Difficulty sleeping (Acute) Distal radius fracture, right (Acute) Former smoker (Acute) Numbness and tingling in right hand (Acute) Postmenopausal (Acute) Allergic rhinitis (Chronic Unknown) Crohns disease (Chronic Unknown) GERD (gastroesophageal reflux disease) (Chronic Unknown) Hypertension (Chronic Unknown) Irritable bowel syndrome (Chronic Unknown) Osteoporosis (Chronic Unknown) Psoriasis (Chronic Unknown) Colitis (Resolved Unknown) Diabetes (Resolved Unknown) Hyperlipemia (Resolved Unknown) Surgical History History of esophagogastroduodenoscopy (EGD) (Acute) Hx of abdominoplasty (Resolved 04/2009) Hx of hernia repair (Resolved Unknown) Hx of tonsillectomy (Resolved Unknown) History of gastric bypass (07/28/08) History of knee replacement (04/02/10) Family & Social History Family History: Reviewed 01/01/18 by Dany Yoder MD Social History: household members none Safety & Behavioral: Feels Safe in Current Yes Environment Tobacco & Substance use: Smoking Status Former smoker alcohol intake current Substance Use Type does not use Meds Home Medications Medication Instructions Recorded Confirmed Type calcium carbonate-vitamin D3 2 tab PO QDAY #0 01/18/12 01/01/18 History [Oyster Shell Calcium-Vit D3] diphenhydramine HCl 25 mg PO PRN PRN #0 02/16/12 01/01/18 History [VITAMIN D] 2,000 iu PO QDAY #0 06/19/12 01/01/18 History [VITAMIN B-12] 1,000 mcg PO QDAY #0 03/07/16 01/01/18 History [IRON] 65 mg PO QDAY #0 04/28/16 01/01/18 History [PSYLLIUM] 2 cap PO BID #0 04/28/16 01/01/18 History multivitamin [Multiple Vitamins] 1 tab PO QDAY #0 04/28/16 01/01/18 History potassium gluconate 550 mg PO QDAY #0 04/28/16 01/01/18 History FAMOTIDINE 40 mg PO HS #90 tab 12/12/16 01/01/18 Rx amlodipine [Norvasc] 5 mg PO QDAY #90 tab 12/12/16 01/01/18 Rx cetirizine 10 mg PO QDAY #90 tab 12/12/16 01/01/18 Rx montelukast 10 mg PO HS #90 tab 12/12/16 01/01/18 Rx telmisartan [Micardis] 40 mg PO QDAY #90 tab 12/12/16 01/01/18 Rx [ACIDOPHILUS PROBIOTI] 1 cap PO BID #0 07/12/17 01/01/18 History aspirin 81 mg tablet,delayed 81 mg PO DAILY 07/12/17 01/01/18 History release denosumab 60 mg/mL subcutaneous 60 mg SUBCUT [id number] vial 07/12/17 10/18/17 History syringe triamcinolone acetonide 0.1 % 1 applictn TOP DAILY PRN #80 gram 07/12/17 01/01/18 Rx topical cream varicella-zoster glycoE [id number] 0.5 ml IM ONCE #1 each 07/12/17 10/18/17 Rx adj(PF) 50 mcg/0.5 mL IM susp, kit hydroxyzine pamoate 1 - 2 cap PO Q4HP PRN #60 cap 09/07/17 01/01/18 Rx buspirone 5 mg tablet 5 mg PO BID #60 tab 10/18/17 01/01/18 Rx oxycodone-acetaminophen [Percocet] 1 tab PO Q4-6H PRN #14 tab 12/31/17 01/01/18 Rx Allergies Allergy/AdvReac Type Severity Reaction Status Date / Time propoxyphene Allergy Severe (DARVON) Verified 01/01/18 13:03 STOPPED BREATHING Beta-Blockers AdvReac Intermediate LIGHTHEADED Verified 01/01/18 13:03 (Beta-Adrenergic Bloc AND FELT LIKE SHE WAS OUTSIDE OF HER BODY enoxaparin [ENOXAPARIN] AdvReac Intermediate IT SITS Verified 01/01/18 13:03 UNDER MY SKIN AND MAKES VERY LARGE BRUISES Review of Systems Constitutional Constitutional: Denies chills and Denies fever(s) Cardiovascular Cardiovascular: Denies chest pain Respiratory Respiratory: Denies cough Gastrointestinal Gastrointestinal: Denies abdominal pain Musculoskeletal Musculoskeletal: Reports numbness Neurologic Neurologic: Reports numbness Hematologic/Lymphatic Hematologic/Lymphatic: Denies easy bruising Exam Vital Signs (past 8 hours): - 01/01/18 15:15 Temperature 98.8 F Pulse Rate 80 Respiratory Rate 20 Blood Pressure 170/90 H Pulse Oximetry 96 Oxygen Delivery Method Room Air Const Orientation: alert and oriented x3 Extrem Other: Right arm- Decreased sensation to the thumb, index, middle finger. Easily wiggles fingers. Good capillary refill. Intact integument. Objective Labs Result Diagrams: 01/01/18 13:07 Labs: Laboratory Results - last 24 hr 01/01/18 13:07 WBC 8.9 RBC 3.95 L Hgb 12.7 Hct 35.7 L MCV 90.3 MCH 32.0 MCHC 35.5 RDW 13.6 Plt Count 302 Neut % (Auto) 69.7 Lymph % (Auto) 18.6 L [place] % (Auto) 9.2 Eos % (Auto) 1.6 L Baso % (Auto) 0.9 Neut # (Auto) 6200 H Assessment & Plan Plan: Assessment/Plan Narrative: She has a intra-articular distal radius fracture with posterior displacement. I recommend surgical intervention with ORIF. Risks and benefits of surgery were discussed including not limited to medical risk with heart attack, stroke, , DVT, PE, infection, bleeding, scarring, nerve injury with pain numbness weakness, nonunion, stiffness, laxity, need for further surgery. All questions have been answered and the appropriate consents obtained.
--- NOTE | 2018-01-01 16:09 | PM.PREOP ---
Pre-operative Note Interval Note Pre-op Check: Yes History & Physical Reviewed by Physician and Yes Exam Performed Changes: No
[2018-01-01] MEDS: CEFAZOLIN 2 GM/100 ML FROZ.PIGGY IV (16:30)
--- NOTE | 2018-01-01 16:53 | SUR.OPER ---
Supine on padded OR bed, head on pillow,Left arm secured on padded arm board at <90 degrees abduction Left arm on arm table under control of surgeon, legs uncrossed with pillow under knees, safety belt at thigh, tape over blanket over lower legs.
[2018-01-01] MEDS: BUPIVACAINE 0.5% W/ EPI (PF) VIAL 30 ML INJ (17:01)
--- NOTE | 2018-01-01 17:40 | P.OP_ITS ---
Operative Date/Time/Diagnoses Date of procedure: 01/01/18 Time of procedure: 17:37 Pre-op diagnosis: right intraarticular distal radius fracture Post-op diagnosis: same Procedure & Clinicians Procedure: ORIF of right distal radius intraarticular fracture Same procedure as scheduled: Yes (67-year-old female with a displaced right distal radius fracture. It was felt she would benefit from operative reduction and stabilization. Risks and benefits of surgery were discussed and appropriate consents were obtained.) Surgeon: Dany Yoder Click Yes if Unassisted: Yes Anesthesia Type: General Operative Notes Findings: None Closure Type: primary Specimen(s): none sent Implants & Drains: [employer] innovations DVR Estimated Blood Loss (mL): 2 Tourniquet time (min): 31 Procedure in detail: The patient was brought to the operating room and intubated on the table. Time-out was performed. Attention was turned towards the well-marked right wrist. Preoperative antibiotics were given. The arm was prepped and draped in the standard sterile fashion. An Esmarch was used to exsanguinate the limb and the tourniquet was inflated. A 8 cm incision was made along the FCR course curving radially distally across the wrist crease. We sharply dissected through the FCR tendon sheath and retracted the tendon and then came down to the quadratus. This was elevated off the distal radius. The fracture was exposed and cleaned up with a curette. We then reduced the fracture and confirmed under x-ray. We then took a [employer] volar plate. It was placed against the bone and x-ray was taken to confirm positioning. One screw was placed through the shaft in the variable hole. This was checked under x-ray and tightened down. We then placed distal row pegs and proximal row screws in the distal fragment. We started along the ulnar column and then finished out in the styloid. We then went back and placed the final shaft screws. The wrist was stressed and shucked under xray to make sure it was stable. Final x-rays were taken. I then explored around the median nerve as she was having numbness and tingling in the hand. There was some slight hematoma on the nerve around the level of the fracture. I could easily see pass a [place] elevator up along the carpal tunnel and there was no resistance. I felt that it was adequately decompressed with our fracture reduction and did not need a separate release. The wound was irrigated. The superficial skin were closed. The patient was placed in a well-padded volar splint. They are extubated and brought to recovery with no complications. Complications: none Condition: stable Disposition: PACU Plan for aftercare: Outpatient. Follow-up in 1.5 weeks. Begin occupational therapy at that point
[2018-01-01] MEDS: MEPERIDINE 50 MG/ML 25 MG IV (18:02)
[2018-01-01] MEDS: OXYCODONE IR 5 MG TABLET PO ×2 (18:24→18:59)
== END 2018-01-01 19:24 | disposition home or self-care (01) ==
PROVIDERS: PCP Physician Assistant; Visit Provider Orthopaedic Surgery
PROC: (CPT 25609; principal; 2018-01-01 15:45)
DX: S52.571A Other intraarticular fracture of lower end of right radius, initial encounter for closed fracture (principal); W01.0XXA Fall on same level from slipping, tripping and stumbling without subsequent striking against object, initial encounter; Y92.009 Unspecified place in unspecified non-institutional (private) residence as the place of occurrence of the external cause; I10 Essential (primary) hypertension; E11.9 Type 2 diabetes mellitus without complications; E66.9 Obesity, unspecified; G47.33 Obstructive sleep apnea (adult) (pediatric)
CPT/HCPCS: 25609; 36415; 73100; 76000; 85025; 93005; J0690; J2175; J2405; J2704

== ENCOUNTER → 2018-04-10 08:32 | Outpatient (CLI) | payer OTHER, SELFPAY ==
[2018-04-10 09:45] LABS: Add Manual Diff / Slide Review NO; Basophils Absolute Auto 100 /uL (0-100); Eosinophils Absolute Auto 200 /uL (0-450); Eosinophils Percent Auto 2.9 % (2-4); Hematocrit 41.7 % (36-46); Hemoglobin 13.7 g/dL (12.0-16.0); Lymphocytes Absolute Auto 1500 /uL (1100-4500); Lymphocytes Percent Auto 23.2 % (25-40); Mean Corpuscular HGB Conc 32.8 % (30-36); Mean Corpuscular Hemoglobin 29.2 PG (26-34); Mean Corpuscular Volume 89.2 fL (80-100); Monocytes Absolute Auto 600 /uL (0-900); Monocytes Percent Auto 8.9 % (3-14); Neutrophils Absolute Auto 4200 /uL (1500-7000); Platelet Count 281 X10^3/uL (150-400); Red Blood Cell Count 4.68 X10^6/uL (4.0-5.2); White Blood Cell Count 6.5 X10^3/uL (4.5-11.0)
[2018-04-10 09:56] LABS: Alanine Aminotransferase 39 IU/L (9-52); Albumin 4.4 g/dL (3.5-5.0); Albumin Globulin Ratio 1.6 (1.0-2.8); Alkaline Phosphatase 84 U/L (38-126); Aspartate Aminotransferase 37 IU/L (14-36); BUN Creatinine Ratio 18.3 (6-22); Bilirubin Total 0.5 mg/dL (0.2-1.3); Blood Urea Nitrogen 11 mg/dL (7-17); Calcium 9.3 mg/dL (8.4-10.2); Carbon Dioxide 26 mmol/L (22-32); Chloride 104 mmol/L (98-107); Estimated Glomerular Filt Rate > 60.0 mL/min (>60); Globulin 2.7 g/dL (1.7-4.1); Glucose 98 mg/dL (80-110); HEMOLYSIS < 15 (0-50); Potassium 4.1 mmol/L (3.4-5.1); Sodium 139 mmol/L (137-145); Total Protein 7.1 g/dL (6.3-8.2)
[2018-04-10 10:47] LABS: HIV 1 and 2 Antibody NEGATIVE (NEGATIVE); Hep C Virus Ab w/Reflex Quant NEGATIVE s/c (NEGATIVE)
[2018-04-11 15:30] LABS: Hepatitis B Surf AB Imm QUANT < 5 mIU/mL (> 9)
[2018-04-15 11:57] LABS: Mitogen-NIL 7.75 IU/mL; NIL 0.01 IU/mL; QuantiFERON TB NEGATIVE (Negative); TB1-NIL 0.01 IU/mL; TB2-NIL 0.01 IU/mL
[2018-07-10 12:09] LABS: Creatinine Urine Random 59.3 mg/dL
[2018-07-10 12:29] LABS: Microalbumi Creatinin Ratio Ur 10.1 ug/mg CR (<30); Microalbumin Urine Random < 0.6 mg/dL (0-1.6)
== END ==
PROVIDERS: PCP Physician Assistant; Visit Provider Physician Assistant
DX: L40.0 Psoriasis vulgaris (principal)
CPT/HCPCS: 36415; 80053; 82043; 82570; 85025; 86317; 86480; 86703; 86803

== ENCOUNTER → 2018-08-29 10:49 | Outpatient (CLI) | payer OTHER, SELFPAY ==
--- NOTE | 2018-08-29 10:50 | DI.MG.S_ITS ---
BILATERAL DIGITAL SCREENING MAMMOGRAM 3D/2D WITH CAD: 08/29/2018 CLINICAL: Routine screening. Family history of breast cancer. Comparison is made to exams dated: 09/19/2017 specimen, 09/19/2017 stereotactic biopsy - [facility], and 09/05/2017 mammogram - [facility]. The tissue of both breasts is heterogeneously dense. This may lower the sensitivity of mammography. Current study was also evaluated with a Computer Aided Detection (CAD) system. There are benign calcifications in the left breast. There also are benign biopsy clips in the left breast. No significant masses, calcifications, or other findings are seen in either breast. There has been no significant interval change. IMPRESSION: There is no mammographic evidence of malignancy. A 1 year screening mammogram is recommended. This exam was interpreted at Station ID: [id number]. NOTE: For mammograms, a report in lay terms will be sent to the patient. Approximately 15% of breast malignancies will not be visualized mammographically. In the management of a palpable breast mass, a negative mammogram must not discourage biopsy of a clinically suspicious lesion. Electronically Signed By: Chitra malhotra/hiren:08/29/2018 19:48:18 letter sent: Normal Exam ACR BI-RADS Category 2: Benign Finding(s) 3342F
== END ==
PROVIDERS: PCP Physician Assistant; Visit Provider Physician Assistant
DX: Z12.31 Encounter for screening mammogram for malignant neoplasm of breast (principal); Z80.3 Family history of malignant neoplasm of breast
CPT/HCPCS: 77063; 77067

== ENCOUNTER → 2018-11-20 10:21 | Outpatient (CLI) | payer OTHER, SELFPAY ==
[2018-11-20 11:19] LABS: Add Manual Diff / Slide Review NO; Basophils Absolute Auto 100 /uL (0-100); Basophils Percent Auto 1.3 % (0-2); Eosinophils Absolute Auto 300 /uL (0-450); Eosinophils Percent Auto 4.5 % (2-4); Hematocrit 38.9 % (36-46); Hemoglobin 13.1 g/dL (12.0-16.0); Lymphocytes Absolute Auto 2000 /uL (1100-4500); Lymphocytes Percent Auto 30.8 % (25-40); Mean Corpuscular HGB Conc 33.8 % (30-36); Mean Corpuscular Hemoglobin 31.6 PG (26-34); Mean Corpuscular Volume 93.6 fL (80-100); Monocytes Absolute Auto 900 /uL (0-900); Monocytes Percent Auto 13.5 % (3-14); Neutrophils Absolute Auto 3300 /uL (1500-7000); Neutrophils Percent Auto 49.9 % (50-75); Platelet Count 282 X10^3/uL (150-400); Red Blood Cell Count 4.16 X10^6/uL (4.0-5.2); Red Cell Distribution Width 14.5 % (11.6-14.8); White Blood Cell Count 6.5 X10^3/uL (4.5-11.0)
[2018-11-20 11:58] LABS: Alanine Aminotransferase 30 IU/L (9-52); Albumin 4.2 g/dL (3.5-5.0); Albumin Globulin Ratio 1.8 (1.0-2.8); Alkaline Phosphatase 72 U/L (38-126); Aspartate Aminotransferase 32 IU/L (14-36); Bilirubin Total 0.4 mg/dL (0.2-1.3); Blood Urea Nitrogen 15 mg/dL (7-17); Calcium 9.3 mg/dL (8.4-10.2); Carbon Dioxide 27 mmol/L (22-32); Chloride 104 mmol/L (98-107); Estimated Glomerular Filt Rate > 60.0 mL/min (>60); Globulin 2.4 g/dL (1.7-4.1); Glucose 115 mg/dL (80-110); HEMOLYSIS < 15 (0-50); Potassium 4.7 mmol/L (3.4-5.1); Sodium 138 mmol/L (137-145); Total Protein 6.6 g/dL (6.3-8.2)
== END ==
PROVIDERS: Family Provider Physician Assistant; PCP Physician Assistant; Visit Provider Physician Assistant
DX: L40.0 Psoriasis vulgaris (principal)
CPT/HCPCS: 36415; 80053; 85025

== ENCOUNTER → 2018-12-31 09:30 | Outpatient (CLI) | payer OTHER, SELFPAY | PROVIDERS: PCP Physician Assistant; Visit Provider Physician Assistant | DX: M81.0 Age-related osteoporosis without current pathological fracture (principal); Z78.0 Asymptomatic menopausal state; Z82.62 Family history of osteoporosis; Z98.84 Bariatric surgery status; Z87.891 Personal history of nicotine dependence | CPT/HCPCS: 77080 ==

== ENCOUNTER → 2019-01-28 09:21 | Outpatient (CLI) | payer OTHER, SELFPAY ==
--- NOTE | 2019-01-28 09:22 | DI.RAD.S_ITS ---
PROCEDURE: FL BARIUM SWALLOW INDICATIONS: Regurgitate undigested food, suspect gastric outlet stenosis. Patient reports prior history of Angel-en-Y gastric bypass surgery. COMPARISON: [facility], , UGI WITH BOWEL FOLLOW THRU, 05/30/2016, 8:22. FINDINGS: Function: There is gastroesophageal reflux to above the level of the marlon. There is normal transit of a calibrated barium tablet through the esophagus into the stomach. Morphology: Air-contrast images demonstrate normal mucosal morphology of the esophagus. Single contrast views show no esophageal strictures, extrinsic mass effects, or diverticula. Limited images of the stomach demonstrate a small gastric pouch consistent with prior gastric bypass surgery. There is no convincing outlet obstruction of the gastric pouch with contrast flowing freely into the duodenum. IMPRESSION: 1. Limited images of the stomach demonstrate postsurgical changes of prior gastric bypass surgery. 2. Gastroesophageal reflux to above the level of the marlon. Dictated by: Chirs Tolbert M.D. on 01/28/2019 at 13:07 Approved by: Chrsi Tolbert M.D. on 01/28/2019 at 13:27
== END ==
PROVIDERS: PCP Physician Assistant; Visit Provider Surgery
DX: R13.10 Dysphagia, unspecified (principal); K21.9 Gastro-esophageal reflux disease without esophagitis; Z98.84 Bariatric surgery status
CPT/HCPCS: 74220

== ENCOUNTER 2019-02-26 13:54 | Day surgery (SDC) | payer OTHER, SELFPAY ==
[2019-02-26] VITALS (11 sets, daily range): BP systolic 156–182; BP diastolic 77–110; PULSE 73–90; RESP 12–19; TEMP 36.2–36.8; O2SAT 96–99; BMI 36.6
--- NOTE | 2019-02-26 | PATH_ITS ---
[facility] Accession Number: [id number] . 01 Material submitted: . gastrointestinal site - GASTRIC MUCOSA PERIANASTOMOSIS . 02 Diagnosis: Stomach, Gastrojejunal Anastomosis, Biopsy: Small bowel mucosa with no diagnostic abnormality. Negative for Helicobacter organisms by immunohistochemistry. Negative for dysplasia or malignancy. [facility] 03/01/2019 1441 Local . 02 Electronically signed: . Michael Medina MD, PhD, Pathologist NPI- [id number] . 01 Gross description: . GASTRIC MUCOSA PERIANASTOMOSIS: Received in formalin is 1 fragment(s) of vu, soft tissue measuring 0.2 x 0.1 x 0.1 cm submitted entirely in 1 cassette(s) /DM 02/27/2019 1935 Local . 02 Microscopic: . An immunohistochemical stain was performed to evaluate for Helicobacter organisms and is negative. The control stain showed appropriate reactivity. . * This test was developed and its performance characteristics determined by [facility]. It has not been cleared or approved by the U.S. Food and Drug Administration. The FDA has determined that such clearance or approval is not necessary. This test is used for clinical purposes. It should not be regarded as investigational or for research. . 02 Pathologist provided ICD-10: R13.10, K31.9 . 02 CPT . 957858, [id number] Performed at: 01 [facility] [place] [address] [facility], [place], [place] [id number] MD Joel Godfrey MD Phone: [phone] Performed at: 02 [facility] [place] [address] [place], [place] [id number] MD Mili Uriostegui MD Phone: [phone]
[2019-02-26] MEDS: SODIUM CHLORIDE 0.9% 1,000 ML 200 ML IV (14:37)
[2019-02-26] MEDS: MIDAZOLAM 5 MG/5 ML VIAL IV (15:17)
[2019-02-26] MEDS: fentaNYL 250 MCG/5 ML INJ IV (15:46)
--- NOTE | 2019-02-26 15:47 | PM.HP.1 ---
History of Present Illness History of Present Illness Date Patient Seen: 02/26/19 Time Patient Seen: 15:47 Chief complaint: [id number] Narrative: This is a 69-year-old woman with a history of obesity, gastric bypass, gastric outlet stenosis of bypass, hypertension and osteoporosis. For about the past 6 months the patient has noticed a frequency with which she regurgitates undigested food. She has had this before a couple of years ago and required dilation of the gastric outlet from her gastric bypass to her jejunum. She is able to digest food if she avoids things that are dry, bulky, or ?too much food.? ROS: She denies fevers, abdominal pain, she reports reflux symptoms and vomiting. Thirteen system review is negative other than as mentioned below and in HPI. PE: GENERAL: Well groomed and cooperative. Appears stated age. Answers questions promptly and appropriately. Vital signs noted. HENT: Normocephalic, atraumatic. Hearing intact. Oral mucosa is pink and moist. EYES: Conjunctiva pink, sclera white, no periorbital swelling. CARDIOVASCULAR: Regular rate. No pedal edema. RESPIRATORY: Non tachypneic, breathing comfortably on room air. GASTROINTESTINAL: Abdomen soft and non-distended; nontender, significantly obese GENITALURINARY: No flank tenderness. MUSCULOSKELETAL: Equal tone and mass bilaterally. Ambulates with the aid of a cane SKIN: Warm, dry, soft, appropriate color for ethnicity. No other lesions, rashes, or wounds. NEURO: Alert and Oriented X 3. No gross sensory deficits, or cognitive issues. PSYCH: Appropriate affect and mood. Patient History Medical History Abrasion of forehead (Acute) Acquired gastric outlet stenosis (Acute) Allergic rhinitis (Chronic Unknown) Anxiety (Acute) Blister (Acute) Colitis (Resolved Unknown) Crohn's disease without complication (Resolved) Crohns disease (Chronic Unknown) Depression (Acute) Diabetes (Resolved Unknown) Difficulty sleeping (Acute) Distal radius fracture, right (Acute) Essential hypertension (Chronic 04/23/02) Former smoker (Acute) GERD (gastroesophageal reflux disease) (Chronic Unknown) Hyperlipemia (Resolved Unknown) Hypertension (Chronic Unknown) Irritable bowel syndrome (Chronic Unknown) Numbness and tingling in right hand (Acute) Osteoporosis (Chronic 05/09/16) Osteoporosis (Chronic Unknown) Postmenopausal (Acute) Psoriasis (Chronic Unknown) Status post bariatric surgery (Chronic) Surgical History History of esophagogastroduodenoscopy (EGD) (Acute) History of gastric bypass (07/28/08) History of knee replacement (04/02/10) Hx of abdominoplasty (Resolved 04/2009) Hx of hernia repair (Resolved Unknown) Hx of tonsillectomy (Resolved Unknown) Family & Social History Social History: household members none Tobacco & Substance use: Smoking Status Former smoker alcohol intake current Substance Use Type does not use Meds Home Medications and Allergies Home Medications Medication Instructions Recorded Confirmed Type calcium carbonate-vitamin D3 2 tab PO QDAY #0 01/18/12 02/26/19 History [Oyster Shell Calcium-Vit D3] [VITAMIN D] 2,000 iu PO QDAY #0 06/19/12 01/18/19 History [VITAMIN B-12] 1,000 mcg PO QDAY #0 03/07/16 01/18/19 History [IRON] 65 mg PO QDAY #0 04/28/16 01/18/19 History [PSYLLIUM] 2 cap PO BID #0 04/28/16 01/18/19 History multivitamin [Multiple Vitamins] 1 tab PO QDAY #0 04/28/16 02/26/19 History potassium gluconate 550 mg PO QDAY #0 04/28/16 01/18/19 History aspirin 81 mg tablet,delayed 81 mg PO DAILY 07/12/17 02/26/19 History release triamcinolone acetonide 0.1 % 1 applictn TOP DAILY PRN #80 gram 07/12/17 02/26/19 Rx topical cream denosumab 60 mg/mL subcutaneous 60 mg SUBCUT [id number] #1 vial 06/27/18 02/26/19 Rx syringe cetirizine 10 mg tablet 10 mg PO QDAY #90 tab 07/17/18 02/26/19 Rx folic acid 1 mg tablet 1 mg PO DAILY 09/18/18 02/26/19 History adalimumab 40 mg/0.8 mL 40 mg SUBCUT Q2W 12/11/18 02/26/19 History subcutaneous syringe kit ascorbate calcium (vitamin C) 500 500 mg PO DAILY 12/11/18 02/26/19 History mg tablet omeprazole 20 mg capsule,delayed 20 mg PO BID #60 cap 12/11/18 02/26/19 Rx release amlodipine 5 mg tablet 5 mg PO QDAY #90 tab 01/18/19 02/26/19 Rx montelukast 10 mg tablet 10 mg PO QPM #90 tab 01/18/19 02/26/19 Rx hydroxyzine pamoate 25 mg capsule See Rx Instructions PO Q4HP PRN 01/21/19 02/26/19 Rx #90 cap FAMOTIDINE 40 mg PO HS #90 tab 02/22/19 02/26/19 Rx Lactobacillus acidophilus See Protocol PO DAILY 02/26/19 02/26/19 History [Probiotic] telmisartan 40 mg PO DAILY 02/26/19 02/26/19 History Allergies Allergy/AdvReac Type Severity Reaction Status Date / Time propoxyphene Allergy Severe (DARVON) Verified 02/26/19 14:13 STOPPED BREATHING Beta-Blockers AdvReac Intermediate LIGHTHEADED Verified 02/26/19 14:13 (Beta-Adrenergic Bloc AND FELT LIKE SHE WAS OUTSIDE OF HER BODY enoxaparin [ENOXAPARIN] AdvReac Intermediate IT SITS Verified 02/26/19 14:13 UNDER MY SKIN AND MAKES VERY LARGE BRUISES Exam Vital Signs (past 8 hours): - 02/26/19 14:28 Temperature 97.9 F Pulse Rate 88 Respiratory Rate 16 Blood Pressure 182/82 H Pulse Oximetry 99 Oxygen Delivery Method Room Air Assessment & Plan Assessment and plan (1) Acquired gastric outlet stenosis: Current visit: No Status: Acute (2) Regurgitation of food: Current visit: No Status: Acute (3) Status post bariatric surgery: Current visit: No Status: Chronic Assessment & Plan narrative: Risks and benefits of dilation of her gastric outlet stenosis were discussed. Risk of bleeding, perforation, need for additional procedures were discussed. The patient desires to proceed with her dilation procedure. Time Spent With Patient Time with patient: 15-24 minutes Quality VTE Deep Vein Thrombosis/Pulmonary Embolism Present on Admission: No
--- NOTE | 2019-02-26 15:49 | PM.OP.ENDO ---
Operative Date/Time/Diagnoses Date of procedure: 02/26/19 Time of procedure: 15:49 Pre-op diagnosis: Gastric outlet stenosis Post-op diagnosis: same Procedure & Clinicians Study performed: Esophagogastroscopy with dilation of gastric outlet anastomosis Same procedure as scheduled: Yes Indications: Gastric outlet stenosis Surgeon: Filomena Gray Procedure Notes SCOAP/Timeout: Performed Procedure in detail: The patient was brought to the room and placed in left lateral decubitus position with all bony prominences padded. A time-out was performed and then the patient was given procedural sedation starting with 3 mg of Versed and [100] mcg of fentanyl. A total of 5 mg of Versed and 150 micro g of fentanyl were given for the entire procedure. Vitals were monitored throughout the procedure and remained stable. Once adequately sedated the procedure was begun. The gastroscope was passed over the tongue and into the esophagus without incident, and a tubular view of the esophagus was maintained as the scope was advanced down the esophagus into the stomach. The esophageal and gastric mucosa appeared normal. The gastrojejunal anastomosis was found and was small appearing. The dilation balloon was advanced into the lumen of the anastomosis and insufflated to 1 12 mm at 3 FUENTES. The balloon was quite loose in the lumen, and so we then insufflated it further to 4.5 FUENTES making the balloon diameter 13.5. Again the balloon was quite loose in the lumen, so we dilated it to 8 atmospheres, and 15 mm. At this point we held the insufflation for 2 minutes, and release the pressure at the end of 2 minutes. There was some mucosal breaks and a mild degree of bleeding. At this point we upsized to then excise of balloon dilator. Started at 15 mm 3 atmospheres of pressure, and kept it there for 2 minutes, and subsequently advanced to 16.5 for 2 minutes, and then to 18 mm for 2 minutes. There were few mucosal breaks and some moderate bleeding. The bleeding stopped on its own after couple of minutes. A noticed at the edge of the mucosa was friable prior to balloon dilation so I went back and biopsy this. This is a biopsy from the gastric mucosa at the verge of the anastomosis. At this point I felt like the dilation was adequate, and the patient tolerated it well. There was good hemostasis, and we suctioned out the remaining fluid and air from the stomach. I then withdrew the scope from the stomach through the esophagus without incident and the procedure was concluded. The patient tolerated the procedure well and was transferred to the PACU in stable condition. Sedation minutes: 30 Findings: other findings (Gastric outlet stenosis) Specimen(s): other (Gastric mucosa at anastomosis) Complications: none Impression: Gastric outlet stenosis, with good tolerance of dilation up to 18 mm Post-procedure Recommendations: Continue medication(s) and Other recommendation (I will contact the patient with her biopsy results. She should follow up in 3-4 weeks to discuss any improvement in her symptoms.) Follow up: weeks (3-4) Disposition: PACU
== END 2019-02-26 17:09 | disposition home or self-care (01) ==
LOC: ENDO 13:55
PROVIDERS: PCP Physician Assistant; Visit Provider Surgery
PROC: 0DJ08ZZ Inspection of Upper Intestinal Tract, Via Natural or Artificial Opening Endoscopic (ICD-10-PCS; CPT 43235; principal; 2019-02-26 15:15)
DX: K31.1 Adult hypertrophic pyloric stenosis (principal); R13.10 Dysphagia, unspecified; R11.10 Vomiting, unspecified; Z98.84 Bariatric surgery status; M81.0 Age-related osteoporosis without current pathological fracture; I10 Essential (primary) hypertension
CPT/HCPCS: 43245; 99152; 99153; J2250; J3010

== ENCOUNTER → 2019-03-26 10:27 | Outpatient (CLI) | payer OTHER, SELFPAY | PROVIDERS: Physician Assistant; PCP Physician Assistant; Referring Provider Physician Assistant; Visit Provider Physician Assistant | DX: L40.0 Psoriasis vulgaris (principal) | CPT/HCPCS: 36415; 86480 ==

== ENCOUNTER 2019-04-09 12:04 | Day surgery (SDC) | payer OTHER, SELFPAY ==
[2019-04-09 13:32] VITALS: BP 169/92; PULSE 91; RESP 18; TEMP 36.1; O2SAT 100; BMI 36.6
[2019-04-09] MEDS: SODIUM CHLORIDE 0.9% 1,000 ML 200 ML IV (13:45)
--- NOTE | 2019-04-09 14:30 | PM.PREOP ---
Pre-operative Note Interval Note History & Physical reviewed/Exam performed by Physician: Yes Changes to H&P: No ASA Class (for procedural sedation): II
--- NOTE | 2019-04-09 15:39 | PM.OP.ENDO ---
Operative Date/Time/Diagnoses Date of procedure: 04/09/19 Time of procedure: 15:39 Pre-op diagnosis: Personal history of colon polyps Post-op diagnosis: other (No polyps found on this surveillance colonoscopy, but visibility was affected by poor prep) Procedure & Clinicians Study performed: Surveillance colonoscopy Same procedure as scheduled: Yes Indications: Personal history of colon polyps Surgeon: Filomena Gray Procedure Notes SCOAP/Timeout: Performed Procedure in detail: The patient was brought to the room and placed in left lateral decubitus position with all bony prominences padded. A time-out was performed and then the patient was given monitored anesthesia care by the anesthesiologist. Once the patient was adequately sedated a rectal exam was performed, which revealed no abnormalities. The colonoscope was then introduced into the rectum and advanced to the cecum in the usual fashion. The cecum was identified by the appendiceal orifice, the mucosal tri-fold, and the ileocecal valve. The scope was then retracted while rotating side to side and examining each mucosal fold. The prep was moderate to poor throughout the colon, and visibility was not adequate to identify smaller polyps. There were no large masses or large polyps seen. No diverticulosis was seen. At the conclusion of the procedure retroflexion was performed and small grade 1-2 internal hemorrhoids without stigmata of bleeding were seen. The scope was then withdrawn from the rectum the procedure was concluded. The patient was awakened from anesthesia. The patient tolerated the procedure well and was transferred to the PACU in stable condition. Scope withdrawal time: 8 Findings: other findings (Poor prep, low-grade internal hemorrhoids) Specimen(s): none sent Complications: none Post-procedure Recommendations: Colonscopy in 5 years (Recommend colonoscopy in 5 years due to inadequate prep to see small polyps which may have been missed.) Plan for aftercare: Recommend 2 day prep for future colonoscopy in 5 years. Follow up: as needed Disposition: PACU
[2019-04-09 15:44] VITALS: BP 139/76; PULSE 86; RESP 16; TEMP 36.6; O2SAT 98
[2019-04-09 15:49] VITALS: BP 158/85; PULSE 95; RESP 16; O2SAT 97
[2019-04-09 15:55] VITALS: BP 160/79; PULSE 81; RESP 13; TEMP 36.4; O2SAT 97
== END 2019-04-09 16:20 | disposition home or self-care (01) ==
PROVIDERS: PCP Physician Assistant; Referring Provider Surgery; Visit Provider Surgery
PROC: 0DJD8ZZ Inspection of Lower Intestinal Tract, Via Natural or Artificial Opening Endoscopic (ICD-10-PCS; CPT 45378; principal; 2019-04-09 13:45)
DX: Z12.11 Encounter for screening for malignant neoplasm of colon (principal); Z86.010 Personal history of colon polyps; K64.0 First degree hemorrhoids
CPT/HCPCS: G0105; 99152; J2704

== ENCOUNTER → 2019-07-12 11:03 | Outpatient (CLI) | payer OTHER, SELFPAY ==
[2019-07-12 13:04] LABS: Alanine Aminotransferase 27 IU/L (<35); Albumin 4.1 g/dL (3.5-5.0); Albumin Globulin Ratio 1.6 (1.0-2.8); Alkaline Phosphatase 80 U/L (38-126); Aspartate Aminotransferase 35 IU/L (14-36); BUN Creatinine Ratio 21.7 (6-22); Bilirubin Total 0.6 mg/dL (0.2-1.3); Bilirubin Unconjugated 0.3 mg/dL (0.0-1.1); Blood Urea Nitrogen 15 mg/dL (7-17); Calcium 9.5 mg/dL (8.4-10.2); Carbon Dioxide 26 mmol/L (22-32); Chloride 105 mmol/L (98-107); Estimated Glomerular Filt Rate > 60.0 mL/min (>60); Globulin 2.5 g/dL (1.7-4.1); Glucose 92 mg/dL (80-110); HEMOLYSIS < 15 (0-50); Potassium 4.5 mmol/L (3.4-5.1); Sodium 138 mmol/L (137-145); Total Protein 6.6 g/dL (6.3-8.2)
== END ==
PROVIDERS: PCP Physician Assistant; Visit Provider Physician Assistant
DX: L40.0 Psoriasis vulgaris (principal)
CPT/HCPCS: 36415; 80053; 80076

== ENCOUNTER → 2019-10-08 08:57 | Outpatient (CLI) | payer OTHER, SELFPAY ==
--- NOTE | 2019-10-08 09:14 | DI.MG.S_ITS ---
Patient Name: ANANDA CESPEDES date: 1950 Sex: F Attending Physician: Aaron Indications: Date: 10/08/2019 09:09 At the request of: TANO AGUILAR Procedure: MM screening mammo BI BILATERAL DIGITAL SCREENING MAMMOGRAM 3D/2D WITH CAD: 10/08/2019 CLINICAL: Routine screening. Family history of breast cancer. Comparison is made to exams dated: 08/29/2018 mammogram - [facility], 09/19/2017 specimen, and 09/19/2017 stereotactic biopsy - [facility]. The tissue of both breasts is heterogeneously dense. This may lower the sensitivity of mammography. Current study was also evaluated with a Computer Aided Detection (CAD) system. There are benign calcifications in both breasts. There also are biopsy clips in the left breast. No significant masses, calcifications, or other findings are seen in either breast. There has been no significant interval change. IMPRESSION: BENIGN There is no mammographic evidence of malignancy. A 1 year screening mammogram is recommended. This exam was interpreted at Station ID: [id number]. NOTE: For mammograms, a report in lay terms will be sent to the patient. Approximately 15% of breast malignancies will not be visualized mammographically. In the management of a palpable breast mass, a negative mammogram must not discourage biopsy of a clinically suspicious lesion. Electronically Signed By: Peter borjas/hiren:10/08/2019 10:45:08 letter sent: Normal Exam ACR BI-RADS Category 2: Benign Finding(s) 3342F
== END ==
PROVIDERS: PCP Physician Assistant; Referring Provider Physician Assistant; Visit Provider Physician Assistant
DX: Z12.31 Encounter for screening mammogram for malignant neoplasm of breast (principal); Z80.3 Family history of malignant neoplasm of breast
CPT/HCPCS: 77063; 77067

== ENCOUNTER → 2019-12-18 16:40 | Outpatient (CLI) | payer OTHER, SELFPAY ==
[2019-12-18 17:39] LABS: Alanine Aminotransferase 32 IU/L (<35); Albumin 4.3 g/dL (3.5-5.0); Albumin Globulin Ratio 1.5 (1.0-2.8); Alkaline Phosphatase 92 U/L (38-126); Aspartate Aminotransferase 37 IU/L (14-36); BUN Creatinine Ratio 28.3 (6-22); Bilirubin Total 0.5 mg/dL (0.2-1.3); Bilirubin Unconjugated 0.3 mg/dL (0.0-1.1); Blood Urea Nitrogen 15 mg/dL (7-17); C-Reactive Protein Quant < 0.5 mg/dL (<1.0); Calcium 9.6 mg/dL (8.4-10.2); Carbon Dioxide 28 mmol/L (22-32); Chloride 107 mmol/L (98-107); Estimated Glomerular Filt Rate > 60.0 mL/min (>60); Globulin 2.8 g/dL (1.7-4.1); Glucose 113 mg/dL (80-110); HEMOLYSIS 18 (0-50); Potassium 4.9 mmol/L (3.4-5.1); Sodium 137 mmol/L (137-145); Total Protein 7.1 g/dL (6.3-8.2)
[2019-12-18 17:41] LABS: Add Manual Diff / Slide Review NO; Basophils Absolute Auto 100 /uL (0-100); Basophils Percent Auto 1.3 % (0-2); Eosinophils Absolute Auto 300 /uL (0-450); Eosinophils Percent Auto 3.9 % (2-4); Hematocrit 40.1 % (36-46); Hemoglobin 13.3 g/dL (12.0-16.0); Lymphocytes Absolute Auto 2900 /uL (1100-4500); Lymphocytes Percent Auto 39.1 % (25-40); Mean Corpuscular HGB Conc 33.1 % (30-36); Mean Corpuscular Hemoglobin 31.1 PG (26-34); Mean Corpuscular Volume 93.9 fL (80-100); Monocytes Absolute Auto 900 /uL (0-900); Monocytes Percent Auto 11.5 % (3-14); Neutrophils Absolute Auto 3300 /uL (1500-7000); Neutrophils Percent Auto 44.2 % (50-75); Platelet Count 293 X10^3/uL (150-400); Red Blood Cell Count 4.27 X10^6/uL (4.0-5.2); White Blood Cell Count 7.4 X10^3/uL (4.5-11.0)
[2019-12-18 18:06] LABS: Erythrocyte Sedimentation Rate 6 MM/HR (0-20)
== END ==
PROVIDERS: PCP Physician Assistant; Referring Provider Physician Assistant; Visit Provider Physician Assistant
DX: L27.0 Generalized skin eruption due to drugs and medicaments taken internally (principal)
CPT/HCPCS: 36415; 80053; 80076; 85025; 85651; 86140

== ENCOUNTER → 2020-06-10 10:27 | Outpatient (CLI) | payer OTHER, SELFPAY ==
[2020-06-10 11:53] LABS: Add Manual Diff / Slide Review NO; Basophils Absolute Auto 100 /uL (0-100); Basophils Percent Auto 1.2 % (0-2); Eosinophils Absolute Auto 300 /uL (0-450); Eosinophils Percent Auto 3.7 % (2-4); Hematocrit 37.9 % (36-46); Hemoglobin 12.9 g/dL (12.0-16.0); Lymphocytes Absolute Auto 2100 /uL (1100-4500); Lymphocytes Percent Auto 30.9 % (25-40); Mean Corpuscular HGB Conc 34.1 % (30-36); Mean Corpuscular Hemoglobin 31.5 PG (26-34); Mean Corpuscular Volume 92.2 fL (80-100); Monocytes Absolute Auto 700 /uL (0-900); Monocytes Percent Auto 10.7 % (3-14); Neutrophils Absolute Auto 3700 /uL (1500-7000); Neutrophils Percent Auto 53.5 % (50-75); Platelet Count 280 X10^3/uL (150-400); Red Blood Cell Count 4.11 X10^6/uL (4.0-5.2); Red Cell Distribution Width 14.5 % (11.6-14.8); White Blood Cell Count 6.9 X10^3/uL (4.5-11.0)
[2020-06-10 12:04] LABS: Alanine Aminotransferase 26 IU/L (<35); Albumin Globulin Ratio 1.5 (1.0-2.8); Alkaline Phosphatase 94 U/L (38-126); Aspartate Aminotransferase 36 IU/L (14-36); BUN Creatinine Ratio 22.1 (6-22); Bilirubin Total 0.4 mg/dL (0.2-1.3); Bilirubin Unconjugated 0.3 mg/dL (0.0-1.1); Blood Urea Nitrogen 17 mg/dL (7-17); Calcium 9.4 mg/dL (8.4-10.2); Carbon Dioxide 25 mmol/L (22-32); Chloride 106 mmol/L (98-107); Estimated Glomerular Filt Rate > 60.0 mL/min (>60); Globulin 2.7 g/dL (1.7-4.1); Glucose 122 mg/dL (80-110); HEMOLYSIS < 15 (0-50); Potassium 4.4 mmol/L (3.4-5.1); Sodium 139 mmol/L (137-145); Total Protein 6.7 g/dL (6.3-8.2)
== END ==
PROVIDERS: PCP Physician Assistant; Referring Provider Physician Assistant; Visit Provider Physician Assistant
DX: Z79.899 Other long term (current) drug therapy (principal)
CPT/HCPCS: 36415; 80048; 80076; 85025

== ENCOUNTER → 2020-11-25 11:18 | Outpatient (CLI) | payer OTHER, SELFPAY ==
--- NOTE | 2020-11-25 | DI.MG.S_ITS ---
BILATERAL DIGITAL SCREENING MAMMOGRAM 3D/2D WITH CAD: 11/25/2020 CLINICAL: Routine screening. Family history of breast cancer. Comparison is made to exams dated: 10/08/2019 mammogram, 08/29/2018 mammogram, and 08/28/2017 mammogram - [facility]. The tissue of both breasts is heterogeneously dense. This may lower the sensitivity of mammography. Current study was also evaluated with a Computer Aided Detection (CAD) system. There are benign calcifications in both breasts. There also are biopsy clips in the left breast. No significant masses, calcifications, or other findings are seen in either breast. There has been no significant interval change. IMPRESSION: BENIGN There is no mammographic evidence of malignancy. A 1 year screening mammogram is recommended. This exam was interpreted at Station ID: [id number]. NOTE: For mammograms, a report in lay terms will be sent to the patient. Approximately 15% of breast malignancies will not be visualized mammographically. In the management of a palpable breast mass, a negative mammogram must not discourage biopsy of a clinically suspicious lesion. Electronically Signed By: Dom Leigh acr/penrad:11/25/2020 12:56:15 letter sent: Normal Exam ACR BI-RADS Category 2: Benign Finding(s) 3342F
== END ==
PROVIDERS: PCP Internal Medicine; Referring Provider Internal Medicine; Visit Provider Internal Medicine
DX: Z12.31 Encounter for screening mammogram for malignant neoplasm of breast (principal); Z80.3 Family history of malignant neoplasm of breast
CPT/HCPCS: 77063; 77067

== ENCOUNTER → 2020-12-21 09:41 | Outpatient (CLI) | payer OTHER, SELFPAY ==
--- NOTE | 2020-12-21 09:42 | DI.RAD.S_ITS ---
PROCEDURE: FL UPPER GI SMALL BOWEL INDICATIONS: Early satiety COMPARISON: [facility], , ME BARIUM SWALLOW, 01/28/2019, 10:19. FINDINGS: KUB: Postsurgical changes compatible prior gastric bypass surgery redemonstrated. Preprocedural electrician helper film shows a normal bowel gas pattern. No suspicious abdominal calcifications. Visualized solid organ contours appear normal in size. No suspicious bony abnormalities. Esophagus: Air-contrast views demonstrate a normal mucosal pattern. On single-contrast views, there is normal peristalsis. No fixed strictures, extrinsic mass effects, or diverticula. No hiatal hernias or elicited gastroesophageal reflux. Stomach: Status post gastric bypass procedure. Small gastric pouch is stable in appearance compared to prior examination. There is normal passage of contrast material from gastric pouch into loops of small bowel. Small bowel: There is normal transit time of barium through the small intestine. Short segment, dilatation loop of small bowel up to 7 centimeters noted. There is normal passage of contrast material through the focally dilated loop of small bowel. Jejunal and ileal folds are smooth and normal in thickness. No strictures, intraluminal masses, or extrinsic mass effects. The terminal ileum is identified and appears normal. IMPRESSION: 1. Status post gastric bypass. 2. Small gastric pouch is stable in appearance. There is normal passage of contrast material through the gastric pouch into loops of small bowel. 3. Normal transit time of contrast material through loops of small bowel. 4. Approximately 10.5 centimeter segment of proximal small bowel dilated up to 7.0 centimeters. There is normal transit of contrast material through the focally dilated loop of small bowel. Dictated by: Monisha Medina MD, PhD on 12/21/2020 at 12:32 Approved by: Monisha Medina MD, PhD on 12/21/2020 at 12:38
== END ==
PROVIDERS: PCP Student in an Organized Health Care Education/Training Program; Referring Provider Surgery; Visit Provider Surgery
DX: K31.1 Adult hypertrophic pyloric stenosis (principal); Z98.84 Bariatric surgery status
CPT/HCPCS: 74240; 74248

== ENCOUNTER → 2022-02-28 14:31 | Outpatient (CLI) | payer OTHER, SELFPAY ==
--- NOTE | 2022-02-28 | DI.MG.S_ITS ---
BILATERAL DIGITAL SCREENING MAMMOGRAM 3D/2D WITH CAD: 02/28/2022 CLINICAL: Routine screening. Comparison is made to exams dated: 11/25/2020 mammogram, 08/29/2018 mammogram, and 10/08/2019 mammogram - [facility]. Both breasts are heterogeneously dense, which may obscure small masses (category c / 51-75% glandular tissue). Current study was also evaluated with a Computer Aided Detection (CAD) system. There are benign calcifications in both breasts. There also are biopsy clips in the left breast. No significant masses, calcifications, or other findings are seen in either breast. There has been no significant interval change. IMPRESSION: BENIGN There is no mammographic evidence of malignancy. A 1 year screening mammogram is recommended. Based on the Tyrer Cuzick model (a risk assessment model) the patient's lifetime risk is 9.1% and her 10 year risk is 5.8%. According to the ACR, ACS, and NCCN guidelines, an annual breast MRI exam along with mammogram is recommended if the patient's lifetime risk is 20% or greater. This exam was interpreted at Station ID: [id number]. NOTE: For mammograms, a report in lay terms will be sent to the patient. Approximately 15% of breast malignancies will not be visualized mammographically. In the management of a palpable breast mass, a negative mammogram must not discourage biopsy of a clinically suspicious lesion. Electronically Signed By: Mario red/hiren:02/28/2022 15:03:01 letter sent: Normal Exam ACR BI-RADS Category 2: Benign Finding(s) 3342F
== END ==
PROVIDERS: PCP Student in an Organized Health Care Education/Training Program; Referring Provider Internal Medicine; Visit Provider Internal Medicine
DX: Z12.31 Encounter for screening mammogram for malignant neoplasm of breast (principal)
CPT/HCPCS: 77063; 77067

== ENCOUNTER 2023-03-08 07:10 | Day surgery (SDC) | payer OTHER, SELFPAY ==
--- NOTE | 2023-03-07 19:38 | PM.PREOP ---
Pre-operative Note COVID-19 COVID-19 status: Not tested Interval Note History & Physical reviewed/Exam performed by Physician: Yes Changes to H&P: No ASA Class (for procedural sedation): II
--- NOTE | 2023-03-07 19:40 | P.OP_ITS ---
Operative Date/Time/Diagnoses Date of procedure: 03/08/23 Time of procedure: 08:45 Pre-op diagnosis: Bilateral dermatochalasis, bilateral ectropion, bilateral herniated fat Procedure & Clinicians Procedure: Date of service: March 08, 2023 Preoperative diagnoses: 1. Bilateral upper lid dermatochalasis 2. Bilateral lower lid ectropion functional 3. Bilateral lower lid herniated fat pads cosmetic 4. History of hepatitis a Postoperative diagnoses: 1. Bilateral upper lid dermatochalasis 2. Bilateral lower lid ectropion 3. Elective bilateral lower lid cosmetic herniated pad Procedure: Bilateral upper blepharoplasty, functional Bilateral lower lid ectropion repair, functional Bilateral cosmetic herniated fat pad removal Surgeon: Hailee Shelton MD Complications: none Specimen: None Blood loss: Less than 3 mL Anesthesia: Local infiltration with monitored standby. Anesthesiologist: Driss Glasgow M.D. Indications: Bilateral upper lids obstructing superior vision. Preoperative external photographs taken and loss of vision to within 2 mm of marginal light reflex. Functional surgery. Patient complains her downturned lashes and drooping lids are impeding her superior vision when she tries to drive. Visual field testing was performed which showed lost within 20? of fixation in her marginal light reflex was 2.0 mm. Procedure: In the preoperative holding area the amount skin and subcutaneous tissue to be removed was marked with indelible ink. The contours were carefully checked for symmetry and planned procedure discussed with the patient. The patient was taken to the operating room. IV sedation was given. Proparacaine drops were placed in both eyes for comfort. Local infiltration of anesthetic 2.5 cc into each upper lid, consisting of 1% xylocaine with epinephrine, normal saline and 1 cc hyluronidase was placed. This was then supplemented with full strength 2% xylocaine with epinephrine, 0.5% bupivacaine, and 1 cc hyalurondase. The face was prepped. Attention was placed to the right upper lid. Using the previous fine a number 15. -Vu blade was used to incise a skin muscle flap. The flap was lifted and removed. Cautery was applied as needed. Contouring of the muscle belly was also performed. Exploration of the nasal and preoperneurotic fat pads were performed removal and contouring with hemostat and scissors as well as cautery were performed. The lid was then closed with running and interrupted 6 0 Vicryl sutures. Same procedure was repeated for the left upper lid. The Betadine was removed. Maxitrol ointment was placed to suture line. She returned to recovery room in stable condition. Instructions for postoperative cold packs were reviewed. Preoperative diagnosis: 1. Bilateral ectropion 2. Nasolacrimal duct obstruction. Postoperative diagnosis: Status post ectropion repair with horizontal lid shortening and punctal surgery. 3. Anesthesia local with monitored standby. 4. Blood loss: Less than 3 cc 5. Specimen: None Operative summary: Patient presents with excessive irritation and tearing from exposure due to bilateral lower lid laxity malposition. The patient has failed conservative measures including lubrication and antibiotic ointment and desires surgery to improve these symptoms. The patient is taken to the operating room and positioned. Monitoring is performed. Local anesthetic consisting 1% xylocaine mixed with BSS and 1 cc of hyulronidase is placed through the inferior lid both medial inferior and laterally. To have cc is given to each lid. This is then supplemented with 2% xylocaine with epinephrine mixed half and half with 0.5% M arcaine with 1 cc of hyulronidase for pain relief and hemostasis. Good anesthesia was obtained. Attention was placed to the right lower lid. The inferior punctum was examined and punctal plug was in position for dry eye. It was left intact. Attention was placed to the lateral canthus. A 15. Bard-Vu blade was used to make an incision for 1 cm. The periosteum was exposed. Cautery was used as needed. The inferior canthal tendon was lysed with scissors. A tarsal strip was formed with clearance of the anterior and posterior lamella and any exposed lashes. Minimal shortening was performed. The strip was then transected with 5.0 Mersilene type suture which was placed double-armed through the periosteum and tied with multiple knots at the orbital rim. The outer tarsus and lid was then closed with 6 0 interrupted sutures. The procedure was repeated on the left side in identical fashion. There was minimal bleeding. The patient returned to the recovery room in good condition. Sutures will be removed in the office in approximately 10 days. Procedure: Cosmetic lower herniated fat pad removal Patient has feels she has cosmetically unacceptable severe herniated fat pads bilaterally lower lids. Risk and benefits reviewed for this elective procedure of removing the fat is discussed and patient desires. A subciliary incision 2 mm under the lash line is performed along the entirety of the lower lid beginning 4 mm inferior to the punctum. A skin muscle flap was then dissected with tenotomy scissors and the inferior orbital septum exposed. The inferior orbital septum was entered with scissors and the fat pad sequentially nasal medial and temporal are exposed slightly prolapsed and then removed with cautery of any bleeders. No traction was placed on the fat. Extensive removal is needed. Attention was 1st placed in the right lower than the left lower lid. Once adequate contour hemostasis are obtained and the lid is closed with running 6 0 Vicryl sutures of the subciliary incision. No complications Hailee Shelton MD. Same procedure as scheduled: Yes
[2023-03-08] MEDS: LACTATED RINGERS 1,000 ML 42 ML IV (07:33)
[2023-03-08 07:55] VITALS: BP 156/89; PULSE 86; RESP 16; TEMP 36.6; O2SAT 100; BMI 31.1
[2023-03-08] MEDS: LIDOCAINE 2% W/EPI 3 ML, BUPIVACAINE 0.5% (PF) 2 ML, HYALURONIDASE 150 UNIT INJ (10:39)
[2023-03-08] MEDS: LIDOCAINE 1% 20 ML, EPINEPHrine 0.2 MG INJ (10:41)
[2023-03-08] MEDS: NEOMYCIN/POLY/DEX OPHTH OINT 1 APPLIC EYE-BOTH (10:42)
[2023-03-08] MEDS: PROPARACAINE 0.5% OPHTH SOL 2 DROPS EYE-BOTH (10:42)
[2023-03-08 13:30] VITALS: BP 148/84; PULSE 82; RESP 16; TEMP 36.3; O2SAT 97
== END 2023-03-08 13:32 | disposition home or self-care (01) ==
PROVIDERS: PCP Student in an Organized Health Care Education/Training Program; Referring Provider Ophthalmology; Visit Provider Ophthalmology
PROC: (CPT 67917; principal; 2023-03-08 08:45)
DX: H02.122 Mechanical ectropion of right lower eyelid (principal); H02.125 Mechanical ectropion of left lower eyelid; H02.834 Dermatochalasis of left upper eyelid; H02.831 Dermatochalasis of right upper eyelid; H53.8 Other visual disturbances; H04.563 Stenosis of bilateral lacrimal punctum; B15.9 Hepatitis A without hepatic coma; I10 Essential (primary) hypertension; K21.9 Gastro-esophageal reflux disease without esophagitis; Z98.84 Bariatric surgery status
CPT/HCPCS: 67917; 15823; 15821; J0171; J2704; J2765; J3010; J3470

== ENCOUNTER 2023-03-08 09:10 | Day surgery (SDC) | payer SELFPAY | END 2023-03-08 09:11 | disposition home or self-care (01) | LOC: OR 09:11 | PROVIDERS: PCP Student in an Organized Health Care Education/Training Program; Referring Provider Ophthalmology; Visit Provider Ophthalmology ==

== ENCOUNTER → 2023-05-11 07:54 | Outpatient (CLI) | payer OTHER, SELFPAY ==
--- NOTE | 2023-05-11 07:56 | DI.MG.S_ITS ---
BILATERAL DIGITAL SCREENING MAMMOGRAM 3D/2D WITH CAD: 05/11/2023 CLINICAL: Routine screening. Comparison is made to exams dated: 02/28/2022 mammogram, 11/25/2020 mammogram, and 10/08/2019 mammogram - [facility]. Both breasts are heterogeneously dense, which may obscure small masses (category c / 51-75% glandular tissue). Current study was also evaluated with a Computer Aided Detection (CAD) system. There are benign calcifications in both breasts. There also are biopsy clips in the left breast. No significant masses, calcifications, or other findings are seen in either breast. There has been no significant interval change. IMPRESSION: BENIGN There is no mammographic evidence of malignancy. A 1 year screening mammogram is recommended. Based on the Tyrer Cuzick model (a risk assessment model) the patient's lifetime risk is 8.6% and her 10 year risk is 5.9%. According to the ACR, ACS, and NCCN guidelines, an annual breast MRI exam along with mammogram is recommended if the patient's lifetime risk is 20% or greater. This exam was interpreted at Station ID: [id number]. NOTE: For mammograms, a report in lay terms will be sent to the patient. Approximately 15% of breast malignancies will not be visualized mammographically. In the management of a palpable breast mass, a negative mammogram must not discourage biopsy of a clinically suspicious lesion. Electronically Signed By: Mario red/hiren:05/11/2023 11:33:07 letter sent: Normal Exam ACR BI-RADS Category 2: Benign Finding(s) 3342F
== END ==
LOC: MAMMO 07:55
PROVIDERS: PCP Nurse Practitioner; Referring Provider Nurse Practitioner; Visit Provider Nurse Practitioner
DX: Z12.31 Encounter for screening mammogram for malignant neoplasm of breast (principal); R92.333 Mammographic heterogeneous density, bilateral breasts
CPT/HCPCS: 77063; 77067

== ENCOUNTER → 2024-06-17 09:50 | Outpatient (CLI) | payer OTHER, SELFPAY ==
--- NOTE | 2024-06-17 09:52 | DI.MG.S_ITS ---
MM screening mammo BI: 06/17/2024. BI-RADS: 2 CLINICAL: 74-year old female for bilateral screening mammogram. Tyrer-Cuzick lifetime risk of 7.3%. No personal or first-degree family history of breast cancer. The patient had a prior left breast biopsy. PRIOR EXAMS 05/11/2023, 02/28/2022, 11/25/2020, 10/08/2019, 08/29/2018, 09/19/2017, 09/05/2017, 08/28/2017, 05/19/2016, 04/28/2015. MAMMOGRAPHY TECHNIQUE: 2D and 3D (tomosynthesis) digital mammographic views obtained, with additional images as needed for full coverage. Current study was also evaluated with a Computer Aided Detection (CAD) system. DENSITY C. The breasts are heterogeneously dense, which may obscure small masses. MAMMOGRAPHY FINDINGS Right: Benign-appearing calcification noted on the right. There are no suspicious masses, calcifications, or other findings in the breast. Left: Biopsy markers present on the left. Benign-appearing calcification noted on the left. There are no suspicious masses, calcifications, or other findings in the breast. IMPRESSION: * No evidence of malignancy with benign findings. RECOMMENDATIONS Bilateral * Annual screening mammography. OVERALL ASSESSMENT CATEGORY BI-RADS-2: Benign. The [employer] recommends annual screening mammography beginning at age 40 for women with average risk of breast cancer. ELECTRONICALLY SIGNED: Alverto Deng M.D. on 06/17/2024 at 12:36:41 PM PT Interpreting Station ID: [id number]
== END ==
LOC: MAMMO 09:50
PROVIDERS: PCP Nurse Practitioner; Referring Provider Nurse Practitioner; Visit Provider Nurse Practitioner
DX: Z12.31 Encounter for screening mammogram for malignant neoplasm of breast (principal); R92.1 Mammographic calcification found on diagnostic imaging of breast; R92.333 Mammographic heterogeneous density, bilateral breasts
CPT/HCPCS: 77063; 77067